=== PATIENT | female | born 1960 | race Caucasian/White ===

== ENCOUNTER → 2017-12-25 09:10 | Outpatient (CLI) | payer BC, SELFPAY | PROVIDERS: Family Provider Internal Medicine; PCP Internal Medicine; Visit Provider Internal Medicine | DX: R19.03 Right lower quadrant abdominal swelling, mass and lump (principal) ==

== ENCOUNTER → 2018-01-08 08:20 | Outpatient (CLI) | payer BC, SELFPAY ==
[2018-01-06 13:11] VITALS: BP 141/94; BMI 36.1
--- NOTE | 2018-01-08 08:22 | CT_ITS ---
STUDY: CT ABDOMEN AND PELVIS WITH CONTRAST REASON FOR EXAM: Female, 57 years old. Right sided mid abdominal pain for 3 months. RADIATION DOSAGE (If Supplied By Facility): CTDIvol = ( 19.44 ) mGy, DLP = ( 1156.51 ) mGycm TECHNIQUE: Transaxial images were obtained from the dome of the diaphragm to the symphysis pubis with oral contrast. 100 ml of Isovue 300 contrast was administered. Sagittal and coronal images were reconstructed. Individualized dose optimization techniques were used for this CT. COMPARISON: None. FINDINGS: There is elevation of the left hemidiaphragm. Mild increased markings are seen at the left lung base suggestive of atelectasis. The visualized portions of the heart are within normal limits. Multiple scattered 1 cm cysts are seen in the liver. The patient is status post cholecystectomy. Normal spleen. Normal pancreas. Normal bilateral adrenal glands. Normal right kidney. Normal left kidney. Moderate sized hiatal hernia. Normal small intestine. Normal colon. There is non-visualization of the appendix. Normal abdominal aorta. Normal inferior vena cava. There is borderline retroperitoneal lymphadenopathy with enlarged nodes no greater than 10mm in the short axis diameter. Normal urinary bladder. There is absence of the uterus consistent with a prior hysterectomy. There is evidence of a moderate-sized umbilical hernia containing nonobstructive small bowel loops. The neck of the hernia measures 6.2 cm. Normal osseous structures. CT/Abdomen/Pelvis WITH Contrast IMPRESSION: Moderate sized umbilical hernia containing nondilated small bowel loops. Small hiatal hernia. Multiple small hepatic cysts. Electronically Signed: Ashutosh Dobbins MD at 12:45 EST Tel [phone], Service support ,
== END ==
PROVIDERS: Family Provider Internal Medicine; PCP Internal Medicine; Visit Provider Surgery
DX: R93.5 Abnormal findings on diagnostic imaging of other abdominal regions, including retroperitoneum (principal)
CPT/HCPCS: 74177; Q9967

== ENCOUNTER 2018-01-27 05:15 | Day surgery (SDC) | payer BC, SELFPAY ==
[2018-01-27] VITALS (7 sets, daily range): BP systolic 125–146; BP diastolic 85–99; PULSE 65–85; RESP 16–18; TEMP 36.3–36.6; O2SAT 91–95; BMI 35.9
--- NOTE | 2018-01-27 05:23 | EKG12_ITS ---
Test Reason : PRE-OP Blood Pressure : / mmHG Vent. Rate : 071 BPM Atrial Rate : 071 BPM P-R Int : 150 ms QRS Dur : 080 ms QT Int : 430 ms P-R-T Axes : 022 015 021 degrees QTc Int : 467 ms Normal sinus rhythm Nonspecific T wave abnormality Prolonged QT Abnormal ECG When compared with ECG of 15-JAN-2017 14:05, Nonspecific T wave abnormality now evident in Anterior leads Confirmed by DAMIÁN MATHEWS, MATTY ([id number]), heat treat furnace operator LAURA LÓPEZ ([id number]) on 02/03/2018 1:36:18 PM Referred By: Sandip Cruz Confirmed By:MATTY STEEL MD
[2018-01-27 06:40] LABS: Hematocrit 39.1 % (37-47); Hemoglobin 13.3 g/dl (12.0-15.0); Mean Corpuscular Hgb 29.6 pg (27.0-32.0); Mean Corpuscular Volume 86.9 fL (81-99); Platelet Count 199 K/mm3 (150-450); RBC Distribution Width CV 13.2 % (11.6-14.6); RBC Distribution Width SD 41.2 fl (35.1-43.9); White Blood Count 5.7 K/mm3 (4.4-11.0)
[2018-01-27 06:46] LABS: Scan Indicated on CBC? Y/N NO
[2018-01-27] MEDS: Cefazolin 2 GM in 0.9% Normal Saline 100 ML IV (07:07)
--- NOTE | 2018-01-27 07:14 | PCM.OPRPT ---
Problem List (1) Incisional hernia, without obstruction or gangrene Status: Acute Report of Operation Date of Procedure: 01/27/18 Pre-Operative Diagnosis: k43.2 incisional hernia without obstruction or gangrene Post-Operative Diagnosis: Same Surgery/Procedure Performed:: Incisional hernia repair with mesh Description of Surgical Findings:: Ventrio ST hernia patch reference #[id number] lot number [id number] 11 cm x 14 cm oval Type of Anesthesia:: General Anesthesiologist: Kevyn Mae Estimated Blood Loss (mL): < 25 cc Fluids Replaced: 1 L Description of Procedure: Patient was brought in the operating room and placed in the supine position. Under excellent general endotracheal intubation the abdomen was sterilely prepped and draped. A curvilinear incision was made below the umbilicus. Dissection was carried down and a large incisional hernia at the umbilicus was then dissected free from the umbilical skin and down to the fascia. I circumferentially detach the hernia from the surrounding good fascia and placed it back into its preperitoneal space. I then created a preperitoneal window with use of electrocautery for which I fashioned an 11 cm x 14 cm hernia patch into this area. I tacked it to the underlying surface with a single tacking interrupted #1 Nurolon's which were placed down by the ring and then individual interrupted #1 Nurolon's from the good fascia down to the hernia patch itself. I had excellent hemostasis. Once this was completed I then injected Exparel all around the incision. The wound was then brought together with deep dermal stitches of 3-0 Vicryl then a running 4-0 Monocryl. Steri-Strips are applied sterile dressings were applied and the patient tolerated the procedure well. - Admit VTE Documentation VTE Present on Admission: No VTE Mechan Device Prophylaxis: SCD's VTE Pharm Prophylaxis ordered?: No Reason prophylaxis not ordered:: Treatment Not Indicated
--- NOTE | 2018-01-27 07:16 | DCINST_ITS ---
Discharge Diet: Light diet - advance as tolerated Discharge Activity: Return to Normal Activity, May Drive - when you are no longer taking narcotic pain medications., May Shower - with the bandage in place 1-2 days after surgery. Lifting Restrictions: 20 pounds for 8 weeks. Additional Activity Instructions:: Climbing stairs is fine, walking is encouraged. Sitting in bed may be uncomfortable. Sitting up using your lateral muscles (sitting up sideways) is usually more comfortable. Do not drive, work heavy equipment of sign legal documents for 24 hours. If your hernia repair was an ingunial repair, you may have scrotal swelling, an ice pack and/or athletic support can provide more comfort. Pain medications may cause nausea, you should typically eat light foods as you take your pain medications. Pain medications may also cause constipation. If you have difficulty with this, discuss with your doctor. Call your doctor if your incision/area has: Continuous Slow Oozing, Sudden Increased Bleeding, Increased Pain/ Swelling, Increased Redness, Foul Smelling Discharge Call your doctor if you observe: Fever of 101 or Higher Suture Line Care: Avoid Pulling/Pushing, Avoid Pinching/Bending Additional Dressing/Incision Instructions:: Leave the operative bandage on for 2 -3 days. When you remove the bandage, leave the steri-strips on place until your follow up appointment or they fall off. Allergies/Adverse Reactions: Allergies No Known Allergies Allergy (Verified 01/20/18 09:34) Medications to take at Discharge Budesonide Nasal [Rhinocort Aqua] 2 spray NASAL PRN PRN 10/10/13 Atorvastatin Calcium [Lipitor] 80 mg PO QODAY 01/10/14 Clopidogrel Bisulfate [Plavix] 75 mg PO DAILY 01/10/14 Ferrous Sulfate [Iron Supplement] 325 mg PO DAILY PRN 01/10/14 Lisinopril [Zestril] 5 mg PO BID 07/04/15 Citalopram [Celexa] 10 mg PO DAILY 01/15/17 Pantoprazole Sodium [Protonix] 40 mg PO DAILY 01/15/17 Cetirizine HCl [Allergy] 10 mg PO DAILY 01/20/18 Oxycodone HCl/Acetaminophen [Percocet 5/325] 1 - 2 tab PO Q4H PRN PRN 4 Days # 30 tab 01/27/18 The following prescriptions were given: Oxycodone HCl/Acetaminophen [Percocet 5/325] 1 - 2 tab PO Q4H PRN PRN 4 Days # 30 tab PRN Reason: Pain Primary Care Physician: Brigette Saavedra DO [Primary Care Provider] - Please Follow Up With: Sandip Cruz MD - [phone] When: Plan to have a follow up appointment in 7 days. Call to schedule.
[2018-01-27] MEDS: BUPIVACAINE LIPOSOME/PF 20 ML VIAL OPERA.SITE (07:45)
== END 2018-01-27 10:30 | disposition home or self-care (01) ==
LOC: SDC 05:18 → AC 05:18
PROVIDERS: Anesthesiology; Family Provider Internal Medicine; PCP Internal Medicine; Visit Provider Surgery
PROC: (CPT 49560; principal; 2018-01-27 07:00)
DX: K43.2 Incisional hernia without obstruction or gangrene (principal); I10 Essential (primary) hypertension; E78.5 Hyperlipidemia, unspecified; J32.9 Chronic sinusitis, unspecified; M19.90 Unspecified osteoarthritis, unspecified site; G47.30 Sleep apnea, unspecified; K21.9 Gastro-esophageal reflux disease without esophagitis; F41.9 Anxiety disorder, unspecified; Z79.02 Long term (current) use of antithrombotics/antiplatelets; Z79.01 Long term (current) use of anticoagulants; Z79.899 Other long term (current) drug therapy; Z86.73 Personal history of transient ischemic attack (TIA), and cerebral infarction without residual deficits; Z86.010 Personal history of colon polyps; Z98.51 Tubal ligation status
CPT/HCPCS: 00832; 49560; 49568; 85027; 93005; J7120; C1781; J2405; J3490

== ENCOUNTER → 2018-05-07 08:19 | Outpatient (CLI) | payer BC, SELFPAY ==
--- NOTE | 2018-05-07 08:19 | DT_ITS ---
This patient was seen during an EMR downtime May 03, 2018 - May 10, 2018. This patient may have a combination of paper and electronic documentation or all paper documentation. All documentation is viewable within the e-chart portion of [facility] for each patient visit.
--- NOTE | 2018-05-07 08:26 | BI_ITS ---
MAMMOGRAPHY - BILATERAL SCREENING REASON FOR EXAM: Female, 58 years old. Routine annual screening examination. PERTINENT HISTORY: Non-contributory. TECHNIQUE: Digital bilateral breast huy (3D mammographic acquisition) in the CC and MLO projections. 2-D mediolateral oblique (MLO) and craniocaudad (CC) views of both breasts were obtained. CAD: Full Field Digital Mammography with Computer Added Detection was performed. COMPARISON: Comparison is made with prior study dated April 10, 2017 and February 14, 2016. FINDINGS: Breast Composition: There are scattered areas of fibroglandular density. There are no dominant masses or suspicious calcifications. No other significant abnormalities are identified. There has been no significant change since the prior study. BI/SCREENING MAMM (CAD), BILAT IMPRESSION: Stable bilateral screening mammogram. Yearly follow-up mammogram recommended. (A) ASSESSMENT CATEGORY: BIRADS Category 1: Negative. A letter regarding these results will be sent to the patient by the facility within 30 days. Approximately 10% of breast cancers are not detected by mammography. A normal mammogram should not delay biopsy of a clinically suspicious abnormality. [id number] Electronically Signed: Ashutosh Dobbins MD at 9:51 EDT Tel [phone], Service support ,
== END ==
PROVIDERS: Family Provider Internal Medicine; PCP Internal Medicine; Visit Provider Internal Medicine
DX: Z12.31 Encounter for screening mammogram for malignant neoplasm of breast (principal)
CPT/HCPCS: 77063; 77067

== ENCOUNTER → 2018-07-15 11:39 | Outpatient (CLI) | payer BC, SELFPAY ==
[2018-07-21 11:41] LABS: HPV Reflexed? NOT INDICATED
== END ==
PROVIDERS: Visit Provider Obstetrics & Gynecology
DX: Z12.4 Encounter for screening for malignant neoplasm of cervix (principal)
CPT/HCPCS: 88175; G0145

== ENCOUNTER → 2019-01-21 08:56 | Outpatient (CLI) | payer BC, SELFPAY ==
[2018-12-20 11:02] VITALS: BMI 36.1
--- NOTE | 2019-01-21 09:01 | US_ITS ---
STUDY: THYROID ULTRASOUND REASON FOR EXAM: Female, 58 years old. Thyroid nodule follow-up TECHNIQUE: Ultrasound evaluation of the thyroid was performed with real-time and static smtih-scale imaging. COMPARISON: Multiple prior studies most recently from 04/10/2017 FINDINGS: RIGHT LOBE: The right lobe of the thyroid gland measures 4.1 x 1.2 x 2.3 cm. There is a homogeneous echotexture. Solitary oval-shaped hypoechoic nodule in the right thyroid lobe measures 2.1 x 1.4 x 1.5 cm with small areas of cystic transformation. No microcalcifications are seen. LEFT LOBE: The left lobe of the thyroid gland measures 4.0 x 0.9 x 1.7 cm. There is a homogeneous echotexture. There are multiple anechoic to slightly hypoechoic nodules of the left thyroid lobe measuring up to 7 mm. ISTHMUS: The isthmus measures 3.0 mm. The regional lymph nodes are normal. US/Thyroid IMPRESSION: 1. Stable dominant nodule in the right thyroid lobe since April 10, 2017. 2. Left thyroid lobe lesions are more anechoic than the prior study, compatible with colloidal nodules. Electronically Signed: Derrick Portillo MD at 14:56 EST , Service support ,
== END ==
PROVIDERS: Family Provider Internal Medicine; PCP Internal Medicine; Referring Provider Internal Medicine; Visit Provider Internal Medicine
DX: E04.1 Nontoxic single thyroid nodule (principal)
CPT/HCPCS: 76536

== ENCOUNTER → 2019-05-10 09:18 | Outpatient (CLI) | payer BC, SELFPAY ==
[2018-12-20 11:02] VITALS: BMI 36.1
--- NOTE | 2019-05-10 09:20 | BI_ITS ---
MAMMOGRAPHY - BILATERAL SCREENING REASON FOR EXAM: Female, 59 years old. Routine annual screening examination. PERTINENT HISTORY: Non-contributory. TECHNIQUE: Digital bilateral breast chapin (3D mammographic acquisition) in the CC and MLO projections. 2-D mediolateral oblique (MLO) and craniocaudad (CC) views of both breasts were obtained. CAD: Full Field Digital Mammography with Computer Added Detection was performed. COMPARISON: Comparison is made with prior examination dated May 07, 2018 and April 10, 2017. FINDINGS: Breast Composition: There are scattered areas of fibroglandular density. There are no dominant masses or suspicious calcifications. No other significant abnormalities are identified. There has been no significant change since the prior study. BI/SCREEN MAMM (CAD) W/CHAPIN BILAT IMPRESSION: Stable bilateral screening mammogram. Yearly follow-up mammogram recommended. (A) ASSESSMENT CATEGORY: BIRADS Category 1: Negative. A letter regarding these results will be sent to the patient by the facility within 30 days. Approximately 10% of breast cancers are not detected by mammography. A normal mammogram should not delay biopsy of a clinically suspicious abnormality. [id number] Electronically Signed: Ashutosh Dobbins, at 11:28 EDT , Service support ,
--- NOTE | 2019-05-10 09:32 | BD_ITS ---
STUDY: DUAL ENERGY X-RAY ABSORPTIOMETRY / DXA REASON FOR EXAM: Female, 59 years old. The patient is postmenopausal. TECHNIQUE: Bone Mineral Density (BMD) measurements of lumbar spine and bilateral hips were obtained. COMPARISON: Comparison is made with prior study February 14, 2016. FINDINGS: Lumbar Spine (L1-L4): g/cm2 (1.032) / T-score (-1.2) / Z-score (0.0) Findings are suggestive of osteopenia with a low fracture risk. Left Femur Total: g/cm2 (0.945) / T-score (-0.5) / Z-score (0.4) Left Femoral Neck: g/cm2 (0.883) / T-score (-1.1) / Z-score (0.1) Right Femur Total: g/cm2 (0.906) / T-score (-0.8) / Z-score (0.1) Right Femoral Neck: g/cm2 (0.849) / T-score (-1.4) / Z-score (-0.1) The T-Scores on the most recent prior examination were: Lumbar Spine (L1-L4): There has been worsening of bone density since the previous examination. Left Femur Total: which represents a worsening of 5.5%. Right Femur Total: which represents a worsening of 7.1%. BD/Dexa Bone Density Study IMPRESSION: The patient is considered osteopenic as outlined below according to World Zhang Organization (WHO) criteria with a low fracture risk. There has been worsening of bone density since the previous examination. Reference Information: The T-score is the number of standard deviations above or below the standard which is normal for young adults at their peak bone mineral density. The World Health Organization (WHO) interprets the T-scores as follows: Above -1 Normal bone density Between -1 and -2.5 Osteopenia Equal to / or below -2.5 Osteoporosis As a practical clinical guideline, osteopenia may be graded as follows: Mild -1 through -1.5 Moderate -1.6 through -2.0 Severe -2.1 through -2.4 The Z-score is the number of standard deviations above or below age-matched controls. A Z-score of less than -1.5 would be considered abnormal. References: 1. NIH Osteoporosis and Related Bone Diseases http://www.osteo.org 2. International Society for Clinical Densitometry http://www.iscd.org 3. National Osteoporosis Foundation http://www.nof.org Electronically Signed: Ashutosh Dobbins, at 15:37 EDT , Service support ,
== END ==
PROVIDERS: Family Provider Internal Medicine; PCP Internal Medicine; Referring Provider Internal Medicine; Visit Provider Internal Medicine
DX: Z12.31 Encounter for screening mammogram for malignant neoplasm of breast (principal); Z78.0 Asymptomatic menopausal state
CPT/HCPCS: 77063; 77067; 77080

== ENCOUNTER → 2019-07-20 10:30 | Outpatient (CLI) | payer BC, SELFPAY ==
[2018-12-20 11:02] VITALS: BMI 36.1
[2019-07-22 14:26] LABS: HPV APTIMA, High Risk Negative (Negative)
== END ==
PROVIDERS: Visit Provider Obstetrics & Gynecology
DX: Z12.4 Encounter for screening for malignant neoplasm of cervix (principal); Z12.72 Encounter for screening for malignant neoplasm of vagina
CPT/HCPCS: 87624; 88175; G0145

== ENCOUNTER → 2020-01-11 09:44 | Outpatient (CLI) | payer BC, SELFPAY ==
[2018-12-20 11:02] VITALS: BMI 36.1
--- NOTE | 2020-01-11 09:47 | CDU_ITS ---
Reason For Study: CVA Rt. Velocities/BP Lt. Velocities/BP Prox CCA 77/23 cm/sec. Prox CCA 103/27 cm/sec. Mid CCA 84/20 cm/sec. Mid CCA 84/30 cm/sec. Dist CCA 74/23 cm/sec. Dist CCA 73/31 cm/sec. Prox ICA 82/23 cm/sec. Prox ICA 71/23 cm/sec. Mid ICA 75/30 cm/sec. Mid ICA 79/33 cm/sec. Dist ICA 71/28 cm/sec. Dist ICA 111/51 cm/sec. Rt. ICA/CCA = 1.0. Lt. ICA/CCA = 1.3. Prox ECA 79/16 cm/sec. Prox ECA 83/15 cm/sec. Rt. Vert. 30/8 cm/sec. Lt. Vert. 37/14 cm/sec. Right Extracranial There is intimal thickening but no significant atherosclerotic plaque noted in the right common carotid artery. There is intimal thickening but no significant atherosclerotic plaque noted in the right internal carotid artery. There is no significant atherosclerotic plaque noted in the right external carotid artery. Antegrade flow is noted in the right vertebral artery. Left Extracranial There is intimal thickening but no significant atherosclerotic plaque noted in the left common carotid artery. There is intimal thickening but no significant atherosclerotic plaque noted in the left internal carotid artery. There is intimal thickening but no significant atherosclerotic plaque noted in the left external carotid artery. Antegrade flow is noted in the left vertebral artery. Procedure Carotid Duplex [id number]. Exam performed in department. Interpretation Summary No hemodynamically significant plaque right extracranial internal carotid <50% stenosis right internal carotid <50% stenosis right external carotid No hemodynamically significant plaque left extracranial internal carotid <50% stenosis left internal carotid <50% stenosis left external carotid Patent, antegrade vertebrals bilaterally Ordering Physician: Polo Allison Referring Physician: Keri, Brigette Performed By: Bhavana Velázquez RDCS, RVT
== END ==
LOC: CVS 09:46
PROVIDERS: PCP Internal Medicine; Referring Provider Psychiatry & Neurology Neurology; Visit Provider Psychiatry & Neurology Neurology
DX: Z86.73 Personal history of transient ischemic attack (TIA), and cerebral infarction without residual deficits (principal)
CPT/HCPCS: 93880

== ENCOUNTER → 2020-01-12 19:50 | Outpatient (CLI) | payer BC, SELFPAY ==
[2018-12-20 11:02] VITALS: BMI 36.1
== END ==
LOC: SL 20:01
PROVIDERS: PCP Internal Medicine; Referring Provider Psychiatry & Neurology Neurology; Visit Provider Psychiatry & Neurology Neurology
DX: G47.33 Obstructive sleep apnea (adult) (pediatric) (principal); Z86.73 Personal history of transient ischemic attack (TIA), and cerebral infarction without residual deficits
CPT/HCPCS: 95811

== ENCOUNTER → 2020-02-27 07:43 | Outpatient (CLI) | payer BC, SELFPAY ==
[2018-12-20 11:02] VITALS: BMI 36.1
== END ==
PROVIDERS: PCP Internal Medicine; Visit Provider Nurse Practitioner Family
DX: Z46.89 Encounter for fitting and adjustment of other specified devices (principal)

== ENCOUNTER → 2020-08-03 08:35 | Outpatient (CLI) | payer BC, SELFPAY ==
[2018-12-20 11:02] VITALS: BMI 36.1
--- NOTE | 2020-08-03 08:40 | BI_ITS ---
MAMMOGRAPHY - BILATERAL SCREENING REASON FOR EXAM: Female, 60 years old. Routine annual screening examination. PERTINENT HISTORY: Non-contributory. TECHNIQUE: Digital bilateral breast chapin (3D mammographic acquisition) in the CC and MLO projections. 2-D mediolateral oblique (MLO) and craniocaudad (CC) views of both breasts were obtained. CAD: Full Field Digital Mammography with Computer Added Detection was performed. COMPARISON: Comparison is made with prior examination dated 05/10/2019 and 05/07/2018. FINDINGS: Breast Composition: There are scattered areas of fibroglandular density. There are no dominant masses or suspicious calcifications. No other significant abnormalities are identified. There has been no significant change since the prior study. BI/SCREEN MAMM (CAD) W/CHAPIN BILAT IMPRESSION: Stable bilateral screening mammogram. Yearly follow-up mammogram recommended. (A) ASSESSMENT CATEGORY: BIRADS Category 1: Negative. A letter regarding these results will be sent to the patient by the facility within 30 days. Approximately 10% of breast cancers are not detected by mammography. A normal mammogram should not delay biopsy of a clinically suspicious abnormality. [id number] Electronically Signed: Ashutosh Dobbins, at 10:09 EDT , Service support ,
== END ==
PROVIDERS: PCP Internal Medicine; Referring Provider Obstetrics & Gynecology; Visit Provider Obstetrics & Gynecology
DX: Z12.31 Encounter for screening mammogram for malignant neoplasm of breast (principal)
CPT/HCPCS: 77063; 77067

== ENCOUNTER 2021-12-20 07:56 | Outpatient (CLI) | payer BC, SELFPAY ==
--- NOTE | 2021-12-20 08:04 | BI_ITS ---
MAMMOGRAPHY - BILATERAL SCREENING REASON FOR EXAM: Female, 61 years old. Routine annual screening examination. PERTINENT HISTORY: Non-contributory. TECHNIQUE: Digital bilateral breast chapin (3D mammographic acquisition) in the CC and MLO projections. 2-D mediolateral oblique (MLO) and craniocaudad (CC) views of both breasts were obtained. CAD: Full Field Digital Mammography with Computer Added Detection was performed. COMPARISON: Comparison is made with prior study of 08/03/2020 and 05/10/2019. FINDINGS: Breast Composition: There are scattered areas of fibroglandular density. There are no dominant masses or suspicious calcifications. No other significant abnormalities are identified. There has been no significant change since the prior study. BI/SCRN MAMM (CAD)W/CHAPIN BILAT IMPRESSION: Stable bilateral screening mammogram. Yearly follow-up mammogram recommended. (A) ASSESSMENT CATEGORY: BIRADS Category 1: Negative. A letter regarding these results will be sent to the patient by the facility within 30 days. Approximately 10% of breast cancers are not detected by mammography. A normal mammogram should not delay biopsy of a clinically suspicious abnormality. [id number] Electronically Signed: Ashutosh Dobbins MD at 9:37 EST , Service support ,
== END 2021-12-20 23:59 | disposition short-term general hospital (02) ==
LOC: OPBI 07:56
PROVIDERS: PCP Internal Medicine; Referring Provider Obstetrics & Gynecology; Visit Provider Obstetrics & Gynecology
DX: Z12.31 Encounter for screening mammogram for malignant neoplasm of breast (principal)
CPT/HCPCS: 77063; 77067

== ENCOUNTER 2022-01-28 16:33 | Outpatient (CLI) | payer BC, SELFPAY ==
--- NOTE | 2022-01-28 16:37 | CT_ITS ---
STUDY: CT Lower Extremity W/O Contrast Injection 01/28/2022 5:10 PM REASON FOR EXAM: Female, 61 years old. RT KNEE BOB PROTOCOL Individualized dose optimization techniques were used for this CT. TECHNIQUE: RT KNEE BOB PROTOCOL BOB protocol COMPARISON: No priors for comparison. FINDINGS: A lulú was placed along the lateral aspect of the patient''s lower extremity. CT scans were obtained over the hip, knee, and ankle, separately. IMPRESSION: The images will be utilized by the surgical prosthesis oral and maxillofacial pathologist for measurement and planning purposes.. Electronically Signed: Rene Gilmore MD at 17:11 EST , CT/Extremity Lower without Contra
== END 2022-01-28 23:59 | disposition home or self-care (01) ==
PROVIDERS: PCP Internal Medicine; Referring Provider Orthopaedic Surgery; Visit Provider Orthopaedic Surgery
DX: M17.11 Unilateral primary osteoarthritis, right knee (principal)
CPT/HCPCS: 73700; 93005

== ENCOUNTER 2022-02-10 05:23 | Day surgery (SDC) | payer BC, SELFPAY ==
--- NOTE | 2022-01-28 16:26 | EKG12_ITS ---
Test Reason : PRE-OP Blood Pressure : / mmHG Vent. Rate : 075 BPM Atrial Rate : 075 BPM P-R Int : 136 ms QRS Dur : 068 ms QT Int : 392 ms P-R-T Axes : 044 000 046 degrees QTc Int : 437 ms Normal sinus rhythm Normal ECG Confirmed by DAMIÁN MATHEWS, MATTY ([id number]), publication editor FANTA VALDEZ ([id number]) on 01/30/2022 1:11:11 PM Referred By: Tulio Tinajero Confirmed By:MATTY STEEL MD
[2022-01-28 17:17] LABS: Hematocrit 39.5 % (37-47); Hemoglobin 13.3 g/dL (12.0-15.0); Mean Corp Hgb Conc 33.7 g/dL (32-36); Mean Corpuscular Hgb 29.5 pg (27.0-32.0); Mean Corpuscular Volume 87.6 fL (81-99); Mean Platelet Vol. 9.6 fl (6.2-12.0); Platelet Count 219 K/mm3 (150-450); RBC Distribution Width CV 13.1 % (11.6-14.6); RBC Distribution Width SD 42.3 fl (35.1-43.9); Red Blood Count 4.51 M/mm3 (4.2-5.4)
[2022-01-28 17:37] LABS: Anion Gap 5 (5-15); BUN 11 mg/dL (7-18); Calcium,Total 8.5 mg/dL (8.5-10.1); Chloride 108 mmol/L (98-107); Creatinine, Serum 0.69 mg/dL (0.55-1.02); EST Glomerular Filtration Rate 92 mL/min (>60); Est Glom Filt Rate - Afr Amer 111 mL/min (>60); Glucose 92 mg/dL (74-106); Potassium 3.8 mmol/L (3.5-5.1); Sodium Level 139 mmol/L (136-145)
[2022-01-30 10:04] LABS: Magnesium 1.9 mg/dL (1.6-2.6)
[2022-02-10] VITALS (14 sets, daily range): BP systolic 70–132; BP diastolic 43–86; PULSE 60–72; RESP 16–18; TEMP 36.2–37; O2SAT 92–100; BMI 34.3
[2022-02-10] MEDS: Lactated Ringers 1,000 ML 15 ML IV (05:40)
[2022-02-10] MEDS: Gabapentin 600 MG Tablet PO (06:16)
[2022-02-10] MEDS: Acetaminophen 500 MG Tablet 1000 MG PO ×2 (06:17→14:30)
[2022-02-10 06:41] LABS: Bedside Glucose 112 mg/dL (74-106)
--- NOTE | 2022-02-10 07:37 | RAD_ITS ---
STUDY: X-RAY - RIGHT KNEE REASON FOR EXAM: Female, 61 years old. Postoperative evaluation after total knee arthroplasty. TECHNIQUE: 2 view(s) of the knee. COMPARISON: None. FINDINGS: There is a 3 component total knee arthroplasty in anatomic position. There are expected post-operative findings. There are no complications. No other significant abnormality is identified. RAD/Knee 1 or 2 Views IMPRESSION: Total knee arthroplasty in anatomic alignment without complications. Electronically Signed: Dexter Culver MD at 9:13 EDT ,
--- NOTE | 2022-02-10 08:00 | KNEE_PTH ---
PATIENT: JAZZY CUMMINGS [place] [facility] [place][id number] AGE/SX: 61/F ROOM: RE02/10/[address]: Dr. Tulio Tinajero DO : 1960 BED: DIS: 02/10/2022 SPEC #: [id number] RECD: 02/10/22 10:59 STATUS: DOROTHY RETyler #: [id number] KYLE: 02/10/22 08:[address]: Tulio Tinajero DEPT: SURGICAL PATHOLOGY RECD BY: Blanche Chapman ENTERED: 02/10/22 13:27 SP TYPE: TOTAL KNEE OTHR DR: Dr. Brigette Saavedra DO Tissues: Knee, NOS Procedures: Decalcification bone/plaque Surgery Specimen Level IV HEADER OPERATION: ERAS, total knee replacement robotic arm assisted PRE-OP DIAGNOSIS: Unilateral primary osteoarthritis right knee varus deformity right knee TISSUE SUBMITTED: Bone and soft tissue right knee MICROSCOPIC DIAGNOSIS Bone and tissue of right knee, total knee resection: Degenerative joint disease. AM:[place] 02/13/2022 MICROSCOPIC DESCRIPTION Slides are reviewed. GROSS DESCRIPTION Received is one container designated bone and soft tissue right knee. The specimen consists of multiple fragments of doty-yellow bone measuring in aggregate 14 x 12 x 1.5 cm. Also in the specimen container are multiple fragments of yellow-white soft tissue measuring in aggregate 8.5 x 8 x 1 cm. A number of bony fragments contain articular surfaces consistent with tibial plateau and femoral condyle and displaying prominent osteophyte formation, eburnation, and bone erosion. Loop Drier Operator sections are submitted in two cassettes as follows: 1 - soft tissue, 2 - bone after decalcification. / AM:[place] 02/10/2022 TC:5 CPT: 83428, 84098
[2022-02-10] MEDS: Cefazolin 2 GM in 0.9% Normal Saline 100 ML IV (08:10)
[2022-02-10] MEDS: Lactated Ringers 1,000 ML 125 ML IV (08:31)
--- NOTE | 2022-02-10 09:21 | OP.PCM_ITS ---
Report of Operation Date of Procedure: 02/10/22 Pre-Operative Diagnosis: OA Right knee Post-Operative Diagnosis: same Surgery/Procedure Performed:: Right TKR Surgeon: Tulio Tinajero boat officer: Dexter Miller Type of Anesthesia: Spinal Anesthesiologist: Kevyn Mae Specimen's removed: bone Estimated Blood Loss (mL): 30 cc Fluids Replaced: 1500 cc crystalloid Description of Procedure: Report of Operation Date of Procedure: 02/10/22 Preoperative Diagnosis: [right ] knee primary osteoarthritis Postoperative Diagnosis: [right ] knee primary osteoarthritis Operation: Robotic Assisted Knee Total Arthroplasty, [right ] knee Surgeon: Dr Tulio Tinajero, Print Shop Assistant: Dexter Miller PA-C Anesthesia: spinal Anesthesiologist: Kevyn Mae M.D. Findings: Stable knee with good patella tracking Specimen(s): Bony cuts Complications: No intraoperative complications Estimated Blood Loss: 30 cc IV Fluids: 1500 cc crystalloid Implants Used: 1. [employer] Triathlon press-fit CR size 5 femur 2. [employer] Triathlon size 5 tibia 3. 9 mm CS polyethylene 4. 32 mm patella Brief History Operative Indications: [ (61 y\o female) ] with history of [ right ] knee osteoarthrosis with radiographic findings with loss of joint space, osteophyte formation and subchondral sclerosis. Failed conservative measures as mentioned in the H&P. Discussion of total knee arthroplasty as well as risk and benefits were discussed with the patient including but not limited to blood loss, DVTs, PEs, neurovascular damage, general risk of anesthesia including loss of life, and stiffness or instability were also discussed with the patient. Patient demonstrated understanding and was able to sign informed consent. Procedure: On the date of procedure, patient's [right ] lower extremity was marked in the preoperative area. The patient was then taken back to the operating room where that patient was placed on the table in the supine position. All bony prominences were identified and well-padded. Anesthesia assumed control of the C-spine and airway throughout the remainder of the procedure. A tourniquet was placed on the [right ] upper thigh and the leg was prepped in a sterile fashion. The surgeon then scrubbed at this time. Upon reentering the room, the [right ] lower extremity was draped in a standard orthopedic fashion. A timeout was then called and everyone agreed upon the side, the site, the procedure to be performed, patient's identity and antibiotics given. Esmarch bandage was used to exsanguinate the extremity and the tourniquet was placed up to 250 mmHg with the knee in flexion. A midline skin incision was made and a sharp dissection was taken down through skin, subcutaneous tissue and fat. The standard medial parapatellar incision was made and the patella was subluxed laterally. An appropriate deep MCL release was done and the fat pad was resected. Our attention was then directed to the patella. The patella was everted and a flat resection was made. The knee was then flexed up and 2 femoral pins were placed inside the incision and 2 tibial pins were placed outside the incision in the medial tibia bicortically. Once this was completed, the 2 checkpoints in the femur and tibia were placed. Knee was then flexed up and the bony landmarks were registered. Once the was completed, the knee taken through range of motion and manually stressed allowing us to plan for an appropriate tibial cut. The robotic arm was brought into the field sterilely and checkpoint and saw were registered. Based on the patient's deformity, the tibial cut was made in [3 degrees varus ]. At this time, the tensioner was then placed in the joint and ligament tension was checked at 90 degrees and full extension. Based on the patient's ligamentous tension, appropriate adjustments were made to the operative plan and ligament releases were done. Once we were happy with our operative plan with balanced flexion and extension gaps, our attention was directed to the femur. The robot was brought into the field sterilely and registered. Posterior condylar cuts, anterior chamfer cuts and anterior cuts were appropriately made for a [size 5 ] femur. When these were completed, the saws were switched out in the distal femoral and posterior chamfer cuts were made. Protecting the soft tissue throughout this time. A [size 5 ] base plate was selected. The knee was flexed to 90 degrees and soft tissues and posterior osteophytes were removed from the joint. 40 cc of the periarticular injection was injected into the posterior medial corner of the joint. The appropriate trials were then placed on the femur and tibia. A trial polyethylene was trialed to ensure proper balancing and stability of the knee. The appropriate tibial internal rotation was then marked with a bovie. Our attention was then directed to the patella. The lug holes were drilled and the patella trial was placed. Patellar tracking was checked and deemed appropriate. Once we were happy, lug holes were drilled for the femur and trial components were removed. The tibia was subluxed and pinned into place and the keel was punched and drilled appropriately. Final components were verified and opened. The wound was copiously irrigated with normal saline. The components were impacted into place with the tibia, femur and finally the patella. The trial poly component was placed and the knee was placed in full extension. The tracking, alignment and balance were verified and a [9 mm CS ] polyethylene component was placed. Once the final components were placed an Irrisept lavage was performed and the wound was copiously irrigated with normal saline solution and the periarticular injection was given. the wound was closed in a layer-montiel fashion using #1 vicryl interrupted sutures for the arthrotomy, 2-0 interrupted vicryl suture for the subcuticular layer and ford for final skin closure. A sterile compressive dressing was then placed. The patient was then awakened from anesthesia, tra nsferred to the [facility] and transferred to the PACU for recovery. My physician television production assistant was a vital part of this case. He was important in appropriate retraction during the case, and protection of soft tissues during bony cuts. His intimate knowledge of the case and my steps aided in safe and expedient completion of the procedure as well as appropriate position of the leg during the case. He was also vital in assisting with closure under my direct supervision. Due to the complexity of this case, robotic arm was used to assist in the surgery to improve accuracy and clinical outcomes. Post-op Plan: DVT ppx; ASA 81 mg BID, thigh high compression stockings Follow up: in office in 2 weeks for wound check PT: to start POD #0 at hospital, outpatient PT should be arranged. Preoperative antibiotic: Ancef 2 grams IV Tulio Tinajero DO Admit VTE Documentation VTE Present on Admission: No VTE Pharm Prophylaxis ordered?: Yes
[2022-02-10] MEDS: Scopolamine 1mg/72hr Patch 1 PATCH TD (15:30)
== END 2022-02-10 23:59 | disposition home or self-care (01) ==
LOC: SDC 05:24 → AC 05:24
PROVIDERS: Anesthesiology; PCP Internal Medicine; Referring Provider Orthopaedic Surgery; Visit Provider Orthopaedic Surgery
PROC: 0SRC0JZ Replacement of Right Knee Joint with Synthetic Substitute, Open Approach (ICD-10-PCS; CPT 27447; principal; 2022-02-10 07:30)
DX: M17.11 Unilateral primary osteoarthritis, right knee (principal); M21.161 Varus deformity, not elsewhere classified, right knee; I10 Essential (primary) hypertension; E78.5 Hyperlipidemia, unspecified; K21.9 Gastro-esophageal reflux disease without esophagitis; E66.9 Obesity, unspecified; Z68.33 Body mass index [BMI] 33.0-33.9, adult; Z87.891 Personal history of nicotine dependence; Z79.02 Long term (current) use of antithrombotics/antiplatelets; Z79.899 Other long term (current) drug therapy; Z86.73 Personal history of transient ischemic attack (TIA), and cerebral infarction without residual deficits; Z20.822 Contact with and (suspected) exposure to COVID-19
CPT/HCPCS: 27447; 01402; 64447; 36415; 73560; 80048; 82962; 83735; 85027; 87081; 87811; 88305; 88311; 93005; 97162; C1776; J7120; J2405

== ENCOUNTER → 2023-01-23 | Outpatient (CLI) | payer BC, SELFPAY ==
--- NOTE | 2023-01-23 08:20 | BI_ITS ---
MAMMOGRAPHY - BILATERAL SCREENING REASON FOR EXAM: Female, 62 years old. Routine annual screening examination. PERTINENT HISTORY: Non-contributory. TECHNIQUE: Digital bilateral breast chapin (3D mammographic acquisition) in the CC and MLO projections. 2-D mediolateral oblique (MLO) and craniocaudad (CC) views of both breasts were obtained. CAD: Full Field Digital Mammography with Computer Added Detection was performed. COMPARISON: Comparison is made with prior examination dated 12/20/2021 and 08/03/2020. FINDINGS: Breast Composition: There are scattered areas of fibroglandular density. There are no dominant masses or suspicious calcifications. No other significant abnormalities are identified. There has been no significant change since the prior study. BI/SCRN MAMM (CAD)W/CHAPIN BILAT IMPRESSION: Stable bilateral screening mammogram. Yearly follow-up mammogram recommended. (A) ASSESSMENT CATEGORY: BIRADS Category 1: Negative. A letter regarding these results will be sent to the patient by the facility within 30 days. Approximately 10% of breast cancers are not detected by mammography. A normal mammogram should not delay biopsy of a clinically suspicious abnormality. [id number] Electronically Signed: Ashutosh Dobbins MD at 9:53 EST ,
== END | disposition home or self-care (01) ==
LOC: OPBI 08:19
PROVIDERS: PCP Internal Medicine; Referring Provider Internal Medicine; Visit Provider Internal Medicine
DX: Z12.31 Encounter for screening mammogram for malignant neoplasm of breast (principal)
CPT/HCPCS: 77063; 77067

== ENCOUNTER → 2023-03-25 | Outpatient (CLI) | payer BC, SELFPAY ==
--- NOTE | 2023-03-25 13:49 | CDU_ITS ---
Reason For Study: Stenosis Rt. Velocities/BP Lt. Velocities/BP Prox CCA 74/18.2 cm/sec. Prox CCA 59.3/17.3 cm/sec. Mid CCA 74.9/22 cm/sec. Mid CCA 74/19.2 cm/sec. Dist CCA 69.2/15.4 cm/sec. Dist CCA 67.4/23 cm/sec. Prox ICA 58.9/17.3 cm/sec. Prox ICA 62.6/20.1 cm/sec. Mid ICA 79.6/26.7 cm/sec. Mid ICA 60.7/26.7 cm/sec. Dist ICA 92.7/32.2 cm/sec. Dist ICA 88.3/35.5 cm/sec. Rt. ICA/CCA = 1.34. Lt. ICA/CCA = 1.31. Prox ECA 81.5/15.4 cm/sec. Prox ECA 71.1/14.5 cm/sec. Rt. Vert. 28.7/7.3 cm/sec. Lt. Vert. 42.1/16.8 cm/sec. Right Extracranial There is intimal thickening but no significant atherosclerotic plaque noted in the right common carotid artery. There is intimal thickening but no significant atherosclerotic plaque noted in the right internal carotid artery. There is intimal thickening but no significant atherosclerotic plaque noted in the right external carotid artery. Antegrade flow is noted in the right vertebral artery. Left Extracranial There is intimal thickening but no significant atherosclerotic plaque noted in the left common carotid artery. There is intimal thickening but no significant atherosclerotic plaque noted in the left internal carotid artery. There is intimal thickening but no significant atherosclerotic plaque noted in the left external carotid artery. Antegrade flow is noted in the left vertebral artery. Procedure Carotid Duplex 51900. This is a Carotid Duplex examination using B-mode, color flow and specral Doppler. Exam performed in department. VL/Carotid Duplex Ultrasound Interpretation Summary Intimal thickening of the proximal right internal carotid artery with less than 50% stenosis Less than 50% stenosis right external carotid artery Intimal thickening of the proximal left internal carotid artery with less than 50% stenosis Less than 50% stenosis left external carotid artery Patent and antegrade vertebral arteries bilaterally No change from the previous examination of January 11, 2020 Ordering Physician: Polo Allison Referring Physician: Brigette Saavedra M.D. Performed By: Kesha Lund RVT
== END | disposition home or self-care (01) ==
PROVIDERS: PCP Internal Medicine; Referring Provider Psychiatry & Neurology Neurology; Visit Provider Psychiatry & Neurology Neurology
DX: I65.29 Occlusion and stenosis of unspecified carotid artery (principal)
CPT/HCPCS: 93880

== ENCOUNTER → 2023-04-14 | Outpatient (CLI) | payer BC, SELFPAY ==
--- NOTE | 2023-04-14 16:45 | CT_ITS ---
EXAM: CT LEFT LOWER EXTREMITY WITHOUT INTRAVENOUS CONTRAST CLINICAL INDICATION: LEFT OSTEO AR TECHNIQUE: Helically acquired images were obtained of the left lower extremity without intravenous contrast. 2-D reformats were performed by the technologist. CTDIvol = ( 19.29 ) mGy, DLP = ( 1952.84 ) mGycm This CT exam was performed using one or more of the following dose reduction techniques: automated exposure control, adjustment of the mA and/or kV according to patient size, and/or use of iterative reconstruction technique. COMPARISON: January 28, 2022 FINDINGS: BONES/JOINTS: No unusual lytic sclerotic lesions of bone. This includes absence of acute or healing fracture or malalignment. Moderate osteoarthrosis involving all 3 compartments of knee, worse at the medial femorotibial compartment. Large plantar calcaneal enthesophyte. Ankle mortise is intact. No significant joint effusion. No significant tibiotalar joint effusion. SOFT TISSUES: Unremarkable. No soft tissue swelling or gas. No radiopaque foreign body. No soft tissue masses. No other soft tissue abnormalities. CT/Extremity Lower without Contra IMPRESSION: Preoperative planning study showing moderate tricompartmental osteoarthrosis of the left knee, worse at the medial femorotibial compartment. Electronically Signed: Murali Elam MD at 21:47 EDT ,
== END | disposition home or self-care (01) ==
LOC: CT 16:43
PROVIDERS: PCP Internal Medicine; Referring Provider Orthopaedic Surgery; Visit Provider Orthopaedic Surgery
DX: M17.12 Unilateral primary osteoarthritis, left knee (principal)
CPT/HCPCS: 73700

== ENCOUNTER 2023-04-20 05:13 | Day surgery (SDC) | payer BC, SELFPAY ==
--- NOTE | 2023-04-13 07:33 | EKG12_ITS ---
Test Reason : PRE-OP Blood Pressure : / mmHG Vent. Rate : 081 BPM Atrial Rate : 081 BPM P-R Int : 124 ms QRS Dur : 066 ms QT Int : 382 ms P-R-T Axes : 023 -05 033 degrees QTc Int : 443 ms Normal sinus rhythm Normal ECG Confirmed by DAMIÁN MATHEWS, MATTY ([id number]), tape editor FANTA VALDEZ ([id number]) on 04/13/2023 1:50:00 PM Referred By: Tulio Tinajero Confirmed By:MATTY STEEL MD
[2023-04-13 08:08] LABS: Absolute Lymphocyte Count 1.49 X10^3/uL (0.83-4.51); Absolute Neutrophil Count 4.3 X10^3/uL (2.0-7.7); Basophil# 0.07 X10^3/uL; Basophil% 1.1 % (0-1); Hematocrit 44.3 % (37-47); Hemoglobin 14.3 g/dL (12.0-15.0); Lymphocyte # 1.49 X10^3/ul (0.83-4.51); Lymphocyte % 22.6 % (19-41); Mean Corp Hgb Conc 32.3 g/dL (32-36); Mean Corpuscular Hgb 29.2 pg (27.0-32.0); Mean Corpuscular Volume 90.4 fL (81-99); Mean Platelet Vol. 9.8 fl (6.2-12.0); Monocyte# 0.52 X10^3/uL; Monocyte% 7.9 % (0-10); NRBC Flagged by Analyzer 0 % (0-5); Neutrophil # 4.28 X10^3/uL (2.7-7.7); Neutrophil % 65.1 % (47-70); Platelet Count 230 K/mm3 (150-450); RBC Distribution Width CV 12.9 % (11.6-14.6); RBC Distribution Width SD 42.8 fl (35.1-43.9); White Blood Count 6.6 K/mm3 (4.4-11.0)
[2023-04-13 08:21] LABS: Magnesium 2.1 mg/dL (1.6-2.6)
[2023-04-13 08:26] LABS: Anion Gap 6 (5-15); BUN 14 mg/dL (7-18); Calcium,Total 8.9 mg/dL (8.5-10.1); Chloride 108 mmol/L (98-107); Creatinine, Serum 0.74 mg/dL (0.55-1.02); EST Glomerular Filtration Rate 84 mL/min (>60); Est Glom Filt Rate - Afr Amer 102 mL/min (>60); Glucose 100 mg/dL (74-106); Potassium 4.1 mmol/L (3.5-5.1); Sodium Level 140 mmol/L (136-145)
[2023-04-13 08:31] LABS: International Normalized Ratio 1.1; Prothrombin Time (Protime)PT. 13.7 SECONDS (11.7-14.9)
[2023-04-13 08:32] LABS: Partial Thromboplast Time 27.3 Seconds (24.1-36.2)
[2023-04-13 09:15] LABS: Hemoglobin A1c 5.7 % (3.8-5.6)
[2023-04-20 06:08] VITALS: BP 118/85; PULSE 73; RESP 16; TEMP 36.1; O2SAT 94; BMI 34.8
[2023-04-20] MEDS: Magnesium 1 GM over 15 mins IV (06:13)
[2023-04-20] MEDS: Gabapentin 600 MG Tablet PO (06:13)
[2023-04-20] MEDS: Acetaminophen 500 MG Tablet 1000 MG PO (06:13)
[2023-04-20] MEDS: Lactated Ringers 1,000 ML 15 ML IV (06:15)
[2023-04-20 06:40] LABS: Bedside Glucose 137 mg/dL (74-106)
--- NOTE | 2023-04-20 07:30 | KNEE_PTH ---
PATIENT: JAZZY CUMMINGS [place] [facility] [place][id number] AGE/SX: 63/F ROOM: RE04/20/[address]: Dr. Tulio Tinajero DO : 1960 BED: DIS: 04/20/2023 SPEC #: [id number] RECD: 04/20/23 13:19 STATUS: DOROTHY RETyler #: [id number] KYLE: 04/20/23 07:[address]: Tulio Tinajero DEPT: SURGICAL PATHOLOGY RECD BY: Blanche Chapman ENTERED: 04/21/23 07:55 SP TYPE: TOTAL KNEE OTHR DR: Dr. Brigette Saavedra DO Tissues: Knee, NOS Procedures: Decalcification bone/plaque Surgery Specimen Level IV HEADER OPERATION: ERAS, total knee replacement robotic arm assist PRE-OP DIAGNOSIS: Osteoarthritis left knee TISSUE SUBMITTED: Left knee bone and tissue MICROSCOPIC DIAGNOSIS Bone and tissue, left knee, total knee replacement/resection: Pieces of bone with degenerative osteoarthritic changes. Fragments of dense fibroconnective tissue, fibrocartilaginous tissue and reactive synovial tissue. ROBER:camille 04/24/2023 MICROSCOPIC DESCRIPTION Slides are reviewed. GROSS DESCRIPTION Received is one container designated bone and soft tissue left knee. The specimen consists of multiple fragments of doty-yellow bone measuring in aggregate 10.0 x 10.0 x 3.0 cm. Also in the specimen container are two pieces of fibrocartilaginous tissue measuring in aggregate 6.0 x 3.0 x 1.5 cm. A number of bony fragments contain articular surfaces consistent with tibial plateau and femoral condyle and displaying prominent osteophyte formation, eburnation and bone erosion. Flyer Repairer sections are submitted in two cassettes as follows: 1 - soft tissue, 2 - bone after decalcification. / ROBER:camille 04/21/2023 TC:5 CPT: 97462, [id number]
[2023-04-20] MEDS: Cefazolin 2 GM in 0.9% Normal Saline 100 ML IV (07:35)
[2023-04-20] MEDS: JPS (Morphine 10mg/ml) OPERA.SITE (08:56)
[2023-04-20] MEDS: TXA 1000mg in NS100 100ml (IVPB at Incision) 660 MG IV (09:06)
[2023-04-20] MEDS: TXA 1000mg in NS100 100ml (IVPB at Closure) 660 MG IV (09:06)
--- NOTE | 2023-04-20 09:16 | PCM.OPRPT ---
Report of Operation Date of Procedure: 04/20/23 Pre-Operative Diagnosis: OA Left knee Post-Operative Diagnosis: same Surgery/Procedure Performed:: Left TKR Surgeon: Tulio Tinajero head soft sugar operator: Dexter Miller Type of Anesthesia: Spinal Anesthesiologist: Kevyn Mae Estimated Blood Loss (mL): 20 cc Fluids Replaced: 1000 cc crystalloid Admit VTE Documentation VTE Present on Admission: No VTE Mechan Device Prophylaxis: SCD's and Thigh High BRITTANY Hose VTE Pharm Prophylaxis ordered?: Yes
[2023-04-20 09:45] VITALS: BP 100/63; BP 118/85; PULSE 82; RESP 16; TEMP 36.2; O2SAT 100
[2023-04-20 10:00] VITALS: BP 109/72; BP 118/85; PULSE 73; RESP 18; O2SAT 99
--- NOTE | 2023-04-20 10:05 | RAD_ITS ---
STUDY: X-RAY - LEFT KNEE REASON FOR EXAM: Female, 63 years old. Total knee arthroplasty. Initial checkup. TECHNIQUE: 2 view(s) of the knee. COMPARISON: None. FINDINGS: Three component total knee arthroplasty in anatomic position with expected post-operative findings and no complications. RAD/Knee 1 or 2 Views IMPRESSION: Total knee arthroplasty in anatomic alignment without complications. Electronically Signed: Dexter Culver, at 10:19 EDT ,
[2023-04-20 10:15] VITALS: BP 118/67; BP 118/85; PULSE 70; RESP 16; O2SAT 100
[2023-04-20] MEDS: Lactated Ringers 1,000 ML 999 ML IV (10:27)
[2023-04-20 10:30] VITALS: BP 112/67; BP 118/85; PULSE 74; RESP 16; TEMP 36.2; O2SAT 99
[2023-04-20 13:45] VITALS: BP 111/69; BP 118/85; PULSE 80; RESP 16; O2SAT 96
== END 2023-04-20 13:47 | disposition home or self-care (01) ==
LOC: SDC 05:14 → AC 05:14
PROVIDERS: Anesthesiology; PCP Internal Medicine; Referring Provider Orthopaedic Surgery; Visit Provider Orthopaedic Surgery
PROC: 0SRD0JZ Replacement of Left Knee Joint with Synthetic Substitute, Open Approach (ICD-10-PCS; CPT 27447; principal; 2023-04-20 07:00)
DX: M17.12 Unilateral primary osteoarthritis, left knee (principal); G47.30 Sleep apnea, unspecified; I10 Essential (primary) hypertension; E66.9 Obesity, unspecified; R06.02 Shortness of breath; F41.9 Anxiety disorder, unspecified; K21.9 Gastro-esophageal reflux disease without esophagitis; E78.00 Pure hypercholesterolemia, unspecified; Z86.73 Personal history of transient ischemic attack (TIA), and cerebral infarction without residual deficits; Z79.899 Other long term (current) drug therapy; Z87.891 Personal history of nicotine dependence; Z68.35 Body mass index [BMI] 35.0-35.9, adult
CPT/HCPCS: 27447; 64450; 01402; 36415; 73560; 80048; 82962; 83036; 83735; 85025; 85610; 85730; 87081; 88305; 88311; 93005; 97162; C1776; J7120; J2405; J3475

== ENCOUNTER → 2023-04-22 | Outpatient (CLI) | payer BC, SELFPAY ==
--- NOTE | 2023-04-22 12:28 | VDLE_ITS ---
Reason For Study: Left Leg Pain RIGHT LEFT CFV is compressible, spontaneous, phasic, GSV is normal. competent and demonstrates normal CFV is compressible, spontaneous, phasic, augmentation. competent, and demonstrates normal Procedure augmentation. This is a venous duplex using B-mode, color FV is compressible, spontaneous, phasic, flow and spectral Doppler. competent and demonstrates normal Exam performed in department. augmentation. The exam was diagnostic. POP V is compressible, spontaneous, phasic, A preliminary report was called and/or faxed competent and demonstrates normal to [facility]. augmentation. T/P Trunk is compressible. PTV is compressible. LT PerV is compressible. VL/Venous Duplex US, Unilateral Interpretation Summary Deep veins of the left lower extremity are patent and compressible segmentally. There is no evidence of left lower extremity deep vein thrombosis. The left great saphenous vein noemi ears patent and compressible segmentally. Ordering Physician: Tulio Tinajero Referring Physician: Brigette Saavedra M.D. Performed By: Vick Downey RVT
== END | disposition home or self-care (01) ==
LOC: CVS 12:22
PROVIDERS: PCP Internal Medicine; Referring Provider Orthopaedic Surgery; Visit Provider Orthopaedic Surgery
DX: M79.605 Pain in left leg (principal)
CPT/HCPCS: 93971

== ENCOUNTER → 2023-07-29 | Outpatient (CLI) | payer BC, SELFPAY ==
--- NOTE | 2023-07-29 14:58 | CT_ITS ---
STUDY: CT ABDOMEN AND PELVIS WITH CONTRAST - URINARY TRACT REASON FOR EXAM: Female, 63 years old. RLQ PAIN. PRIOR HYSTERECTOMY, CHOLECYSTECTOMY AND HERNIA REPAIR RADIATION DOSAGE (If Supplied By Facility): CTDIvol = ( 17.51 ) mGy, DLP = ( 1127.82 ) mGycm TECHNIQUE: Oral and amp; IV Readi-CAT and amp; 100mL Isovue-300 was administered. Transaxial images were obtained from the dome of the diaphragm to the symphysis pubis subsequent to intravenous contrast administration. Multiplanar coronal and sagittal images were reformatted. Individualized Dose Optimization Techniques Were Used For This CT. COMPARISON: Prior study dated: January 08, 2018 FINDINGS: There is a persistent partially visualized intrathoracic stomach. There is a small left pleural effusion associated with left lower lobe consolidation. There is minimal right basilar atelectasis. There are stable scattered well-circumscribed low-attenuation foci within the liver suggestive of cysts or hemangiomas. There is non-visualization of the gallbladder, which may be secondary to either contraction or a prior cholecystectomy. Normal spleen. Normal pancreas. Normal bilateral adrenal glands. Normal visualized stomach. Normal small intestine. There is circumferential wall thickening of the ascending and transverse colon. There is intraluminal fat within the adjacent transverse colon as well. The appendix is visualized and appears normal. Normal abdominal aorta. No retroperitoneal adenopathy. Normal right kidney. Normal left kidney. Normal urinary bladder. Within the right adnexa there is a 3.9 x 3.7 x 2.9 cm cystic focus which is increased in size since the prior examination previously measuring 2.1 x 2.6 x 2.1 cm. Normal abdominal wall. Normal osseous structures. CT/Abdomen/Pelvis WITH Contrast IMPRESSION: Interval enlargement of the right adnexa measuring 3.9 x 3.7 x 2.9 cm, cannot exclude neoplastic process. Circumferential wall thickening of the ascending and transverse colon associated with intramural fat suggestive of prior inflammation, cannot exclude acute on chronic colitis. Intrathoracic stomach. Small left pleural effusion associated with left lower lobe consolidation. Electronically Signed: Christina Summers MD at 17:32 EDT ,
[2023-07-29 17:25] LABS: CREATININE FINGERSTICK < 0.9 mg/dL (0.55-1.02); EGFR FINGERSTICK > 60.0000 mL/min (>60)
== END | disposition home or self-care (01) ==
LOC: CT 14:56
PROVIDERS: PCP Internal Medicine; Referring Provider Internal Medicine; Visit Provider Internal Medicine
DX: R10.31 Right lower quadrant pain (principal)
CPT/HCPCS: 74177; Q9967

== ENCOUNTER → 2023-10-20 | Outpatient (CLI) | payer BC, SELFPAY ==
[2023-10-21 09:09] LABS: Cancer Antigen 125 22.5 U/mL (0.0-38.1); Carcinoembryonic Antigen 1.6 ng/mL (0.0-4.7)
== END | disposition home or self-care (01) ==
LOC: PAVLAB 11:49
PROVIDERS: PCP Internal Medicine; Referring Provider Obstetrics & Gynecology; Visit Provider Obstetrics & Gynecology
DX: N83.8 Other noninflammatory disorders of ovary, fallopian tube and broad ligament (principal)
CPT/HCPCS: 36415; 82378; 86304

== ENCOUNTER → 2023-10-28 | Outpatient (CLI) | payer BC, SELFPAY ==
--- NOTE | 2023-10-28 07:55 | US_ITS ---
STUDY: ULTRASOUND OF THE FEMALE PELVIS - COMPLETE REASON FOR EXAM: Female, 63 years old. Cyst on ovary LMP: The patient is status post hysterectomy. TECHNIQUE: Transabdominal and Transvaginal TECHNICAL QUALITY: Adequate. COMPARISON: None. FINDINGS: The patient is status post hysterectomy. The right ovary is visualized. The right ovary measures 2.6 cm x 2.7 cm x 2.3 cm. Multiple small follicles are seen in the right ovary. There is no visualized right adnexal mass or complex lesion. There is normal arterial and normal venous vascularity. The left ovary is visualized. The left ovary measures 2.7 cm x 1.7 cm x 1.8 cm. There is a septated cyst in the left ovary measuring 2.1 cm x 2.1 cm x 1.4 cm. There is no visualized left adnexal mass or complex lesion. There is normal arterial and normal venous vascularity. There is no fluid in the cul-de-sac. The pre void volume of the bladder was 306 ml. US/Pelvic (Non ) IMPRESSION: Status post hysterectomy. Multiple small follicles are seen in the right ovary. There is a 2.1 cm x 2.1 cm x 1.4 cm septated cyst in the left ovary. Electronically Signed: Ashutosh Dobbisn MD at 15:26 EST ,
== END | disposition home or self-care (01) ==
LOC: OPUS 07:53
PROVIDERS: PCP Internal Medicine; Referring Provider Obstetrics & Gynecology; Visit Provider Obstetrics & Gynecology
DX: R10.2 Pelvic and perineal pain (principal); N83.8 Other noninflammatory disorders of ovary, fallopian tube and broad ligament
CPT/HCPCS: 76830; 76856

== ENCOUNTER → 2023-12-17 | Outpatient (CLI) | payer BC, SELFPAY ==
--- NOTE | 2023-12-17 15:17 | US_ITS ---
STUDY: ULTRASOUND OF THE FEMALE PELVIS - COMPLETE REASON FOR EXAM: Female, 63 years old. ovarian mass [id number] LMP: TECHNIQUE: Transabdominal and Transvaginal TECHNICAL QUALITY: Adequate. COMPARISON: CT scan 07/29/2023. FINDINGS: The uterus is surgically absent The right ovary is visualized. The right ovary measures 4.1 x 3.6 x 3.1 cm. Numerous cysts are seen throughout the ovary without a dominant cyst. There is normal arterial and normal venous vascularity. The left ovary is visualized. The left ovary measures 3.0 x 2.3 x 1.5 cm. There is a 1.4 cm cyst. There is no visualized left adnexal mass or complex lesion. There is normal arterial and normal venous vascularity. There is no fluid in the cul-de-sac. The pre void volume of the bladder was 465 ml. US/Pelvic w/ Transvaginal IMPRESSION: Right ovary is essentially replaced by numerous cysts no more than 1.5 cm size. No solid mass seen. Electronically Signed: Flaco Velasco MD at 19:45 EST ,
== END | disposition home or self-care (01) ==
LOC: US 15:16
PROVIDERS: PCP Internal Medicine; Referring Provider Obstetrics & Gynecology; Visit Provider Obstetrics & Gynecology
DX: N83.201 Unspecified ovarian cyst, right side (principal)
CPT/HCPCS: 76830; 76856

== ENCOUNTER → 2024-01-27 | Outpatient (CLI) | payer BC, SELFPAY ==
--- NOTE | 2024-01-27 08:22 | BD_ITS ---
STUDY: DUAL ENERGY X-RAY ABSORPTIOMETRY / DXA REASON FOR EXAM: Female, 63 years old. Z780 TECHNIQUE: Bone Mineral Density (BMD) measurements of lumbar spine and bilateral hips were obtained. COMPARISON: Comparison is made with prior study May 10, 2019. FINDINGS: Lumbar Spine (L1-L4): g/cm2 (0.821) / T-score (-2.1) / Z-score (-0.3) Findings are suggestive of osteopenia with a high fracture risk. Left Femur Total: g/cm2 (0.827) / T-score (-0.9) / Z-score (0.3) Left Femoral Neck: g/cm2 (0.673) / T-score (-1.6) / Z-score (-0.1) Right Femur Total: g/cm2 (0.855) / T-score (-0.7) / Z-score (0.5) Right Femoral Neck: g/cm2 (0.661) / T-score (-1.7) / Z-score (-0.2) The T-Scores on the most recent prior examination were: Lumbar Spine (L1-L4): There has been worsening of bone density since the previous examination. Left Femur Total: which represents a worsening of 6.1%. Right Femur Total: which represents an improvement of 1.4%. BD/Dexa Bone Density Study IMPRESSION: The patient is considered osteopenic as outlined below according to World Zhang Organization (WHO) criteria with a high fracture risk. There has been worsening of bone density since the previous examination. Reference Information: The T-score is the number of standard deviations above or below the standard which is normal for young adults at their peak bone mineral density. The World Health Organization (WHO) interprets the T-scores as follows: Above -1 Normal bone density Between -1 and -2.5 Osteopenia Equal to / or below -2.5 Osteoporosis As a practical clinical guideline, osteopenia may be graded as follows: Mild -1 through -1.5 Moderate -1.6 through -2.0 Severe -2.1 through -2.4 The Z-score is the number of standard deviations above or below age-matched controls. A Z-score of less than -1.5 would be considered abnormal. References: 1. NIH Osteoporosis and Related Bone Diseases www osteo.org 2. International Society for Clinical Densitometry www iscd.org 3. National Osteoporosis Foundation www nof.org Electronically Signed: Ashutosh Dobbins MD at 8:43 EST ,
--- NOTE | 2024-01-27 08:22 | BI_ITS ---
MAMMOGRAPHY - BILATERAL SCREENING REASON FOR EXAM: Female, 63 years old. Routine annual screening examination. PERTINENT HISTORY: Non-contributory. TECHNIQUE: Digital bilateral breast chapin (3D mammographic acquisition) in the CC and MLO projections. 2-D mediolateral oblique (MLO) and craniocaudad (CC) views of both breasts were obtained. CAD: Full Field Digital Mammography with Computer Added Detection was performed. COMPARISON: Comparison is made with prior study dated January 23, 2023 and December 20, 2021. FINDINGS: Breast Composition: There are scattered areas of fibroglandular density. There are no dominant masses or suspicious calcifications. No other significant abnormalities are identified. There has been no significant change since the prior study. BI/SCRN MAMM (CAD)W/CHAPIN BILAT IMPRESSION: Stable bilateral screening mammogram. Yearly follow-up mammogram recommended. (A) ASSESSMENT CATEGORY: BIRADS Category 1: Negative. A letter regarding these results will be sent to the patient by the facility within 30 days. Approximately 10% of breast cancers are not detected by mammography. A normal mammogram should not delay biopsy of a clinically suspicious abnormality. [id number] Electronically Signed: Ashutosh Dobbins MD at 12:06 EST ,
== END | disposition home or self-care (01) ==
LOC: OPBI 08:59
PROVIDERS: PCP Internal Medicine; Visit Provider Obstetrics & Gynecology
DX: Z12.31 Encounter for screening mammogram for malignant neoplasm of breast (principal); Z78.0 Asymptomatic menopausal state
CPT/HCPCS: 77063; 77067; 77080

== ENCOUNTER 2024-02-09 09:55 | Day surgery (SDC) | payer BC, SELFPAY ==
[2024-01-29 17:09] LABS: Hematocrit 41.3 % (37-47); Hemoglobin 13.3 g/dL (12.0-15.0); Mean Corp Hgb Conc 32.2 g/dL (32-36); Mean Corpuscular Hgb 28.5 pg (27.0-32.0); Mean Corpuscular Volume 88.4 fL (81-99); Platelet Count 230 K/mm3 (150-450); RBC Distribution Width CV 13.4 % (11.6-14.6); RBC Distribution Width SD 43.4 fl (35.1-43.9); Red Blood Count 4.67 M/mm3 (4.2-5.4); White Blood Count 7.5 K/mm3 (4.4-11.0)
--- NOTE | 2024-02-09 10:27 | HP.PCM_ITS ---
History and Physical Date of Admission: 02/09/24 Intake Vital Signs 01/06/2414:35 02/04/2411:16 02/04/2411:17 Height 5 ft 6 in 5 ft 6 in 5 ft 6 in Weight: 215 lb 4 oz 221 lb 8 oz BMI 34.7 35.7 BP 140/91 H 144/93 H Blood Pressure Location Lt brachial Position Sitting Respiration 18 Pulse 84 Pulse Source Monitor Temp 97.6 F L Pulse Oximetry (%) 95 Oxygen Delivery Method room air Intake Visit Reasons: BSO WSA combo Allergies No Known Allergies Allergy (Verified 02/05/24 11:16) Medications clopidogrel 75 mg tablet 75 mg PO DAILY 01/10/14 [History Confirmed 02/05/24] lisinopril 5 mg tablet 5 mg PO BID 07/04/15 [History Confirmed 02/05/24] citalopram 10 mg tablet 10 mg PO DAILY 01/15/17 [History Confirmed 02/05/24] pantoprazole 40 mg tablet,delayed release 40 mg PO DAILY GERD 01/15/17 [History Confirmed 02/05/24] cetirizine 10 mg tablet 10 mg PO DAILY 01/20/18 [History Confirmed 02/05/24] atorvastatin 80 mg tablet 40 mg PO DAILY 10/20/23 [History Confirmed 02/05/24] Post menopausal: No Patient : No : No PFSH Medical History Alcohol use Anemia Anxiety Arthritis Bilateral carotid artery stenosis Cancer Chronic anticoagulation CPAP (continuous positive airway pressure) dependence Gastric reflux High cholesterol History of CVA (cerebrovascular accident) History of echocardiogram History of hiatal hernia History of pain when walking History of stress test Hx of vertigo Hypertension Migraine headache Non-smoker nontoxic unilateral goiter Osteoarthritis Osteopenia Seborrheic keratosis Shortness of breath on exertion TIA (transient ischemic attack) Umbilical hernia Wears glasses Surgical History History of hysterectomy History of knee replacement procedure of left knee History of laparoscopic cholecystectomy History of tubal ligation Hx of hernia repair S/P colonoscopy Status post right knee replacement Status post surgical removal of malignant neoplasm of skin Family History Mother HypertensionFather COPD (chronic obstructive pulmonary disease) Social History Smoking Status: Never smoker alcohol intake: never substance use type: does not use caffeine: Yes what type of physical activity do you participate in: walking and other details: pedals while sitting down frequency: 3-4 times per week seatbelt use: always do you feel safe at home: Yes additional social history: - Isaias HPI BSO WSA combo Details: JAZZY CUMMINGS is a 63 year old who presents for a preoperative exam for a laparoscopic bso for persistent ovarian cysts. She continues to have persistent mild to moderate pain. initally she had a CT by her pcp that showed a mildly complex cyst with largest dimension of 3.9 cm in June. In September the cyst had gotten smaller, measuring Multiple small follicles are seen in the right ovary. There is a 2.1 cm x 2.1 cm x 1.4 cm septated cyst in the left ovary. . She denies weight loss or abdominal distention. Her biggest complaint today is actually an abdominal wall mass that hurts when she leans against the counter. History 2 Elective abortions Hx Para 2 Spontaneous abortions Hx # Term Pregnancies Ectopic pregnancies Hx # Pregnancies Multiple births # of living children Past Pregnancies Del. Date Name GA/Weeks Outcome Route Bth Weight Infant Gen Labor Lgth Anesthesia Del Locatn Provider FOB Unknown Mariama Unknown Marilia ROS Const ROS Unobtainable: All systems reviewed & are unremarkable except as noted in H Resp Resp: Reports system reviewed and no additional complaints, except as documented; Denies cough GI GI: Reports as per HPI Psych Psych: Reports system reviewed and no additional complaints, except as document ed Exam Const General: cooperative, healthy appearing, comfortable and no acute distress Resp Effort & Inspection: normal respiratory effort Skin General: no rashes or lesions noted Psych Appearance: grossly normal Speech and Movement: speech and movement normal Coding Level of Care Code Off vis,est,level 4 Diagnoses Ovarian mass, right N83.8 Lipoma of torso D17.1 Lipoma location: trunk Incisional hernia, without obstruction or gangrene K43.2 Abdominal pain R10.9 Assessment and Plan Assessment and Plan (1) Ovarian mass, right: Status: Acute (2) Lipoma: Status: Acute Qualifiers: Lipoma location: trunk Qualified Code(s): D17.1 - Benign lipomatous neoplasm of skin and subcutaneous tissue of trunk (3) Incisional hernia, without obstruction or gangrene: Status: Acute (4) Abdominal pain: Status: Acute Plan After discussing the patient's diagnosis and treatment plan options, patient wishes to proceed with surgical management. I have discussed with the patient the risks, benefits, and alternatives of the procedure which include but are not limited to risks of anesthesia, bleeding, infection, possible damage to bowel, bladder, or surrounding vasculature which could lead to additional surgery to evaluate any complications. Patient agrees to procedure and wishes to proceed. ACOG/uptodate references given for additional information regarding procedure. I will perform a laparoscopic bSO and Dr. Dugan will open and close the hernia and remove her lipoma.
[2024-02-09 10:33] VITALS: BP 114/92; PULSE 80; RESP 18; TEMP 36.4; O2SAT 96; BMI 35.3
--- NOTE | 2024-02-09 10:56 | HP.PCM_ITS ---
History and Physical Date of Admission: 02/09/24 Intake Vital Signs 12/07/2407:21 01/06/2414:35 Height 5 ft 6 in 5 ft 6 in Weight: 215 lb 4 oz BMI 34.7 BP 140/91 H Blood Pressure Location Lt brachial Position Sitting Respiration 18 Pulse 84 Pulse Source Monitor Temp 97.6 F L Temp Source Temporal Pulse Oximetry (%) 95 Oxygen Delivery Method room air Intake Visit Reasons: LIPOMA ON ABDOMEN Chief Complaint: lipoma on abdomen Bag Washer Required: No Is patient in pain?: No Allergies No Known Allergies Allergy (Verified 01/06/24 14:36) Medications clopidogrel 75 mg tablet 75 mg PO DAILY 01/10/14 [History Confirmed 01/06/24] lisinopril 5 mg tablet 5 mg PO BID 07/04/15 [History Confirmed 01/06/24] citalopram 10 mg tablet 10 mg PO DAILY 01/15/17 [History Confirmed 01/06/24] pantoprazole 40 mg tablet,delayed release 40 mg PO DAILY GERD 01/15/17 [History Confirmed 01/06/24] cetirizine 10 mg tablet 10 mg PO DAILY 01/20/18 [History Confirmed 01/06/24] atorvastatin 80 mg tablet 40 mg PO QODAY 10/20/23 [History Confirmed 01/06/24] [facility] Medical History Abdominal pain Alcohol use Anemia Anxiety Arthritis Bilateral carotid artery stenosis Cancer Chronic anticoagulation Chronic sinusitis Colon polyps CPAP (continuous positive airway pressure) dependence Gastric reflux High cholesterol History of CVA (cerebrovascular accident) History of echocardiogram History of hiatal hernia History of pain when walking History of stress test Hx of vertigo Hyperlipidemia Hypertension Melanoma Migraine headache Non-smoker nontoxic unilateral goiter Osteoarthritis Osteopenia Paresthesia Seborrheic keratosis Shortness of breath on exertion Sleep apnea Squamous cell carcinoma TIA (transient ischemic attack) Umbilical hernia Wears glasses Surgical History History of hysterectomy History of knee replacement procedure of left knee History of laparoscopic cholecystectomy History of tubal ligation Hx of hernia repair S/P colonoscopy Status post right knee replacement Status post surgical removal of malignant neoplasm of skin Family History Mother HypertensionFather COPD (chronic obstructive pulmonary disease) Social History Smoking Status: Never smoker alcohol intake: never substance use type: does not use caffeine: Yes what type of physical activity do you participate in: walking and other details: pedals while sitting down frequency: 3-4 times per week seatbelt use: always do you feel safe at home: Yes additional social history: - Isaias HPI HPI HPI: Patient is here for lipoma that is becoming larger and more uncomfortable. She is having surgery by another physician soon and would like this lipoma removed during surgery. ROS General General: No weight change or fatigue HEENT HEENT: No difficulty swallowing Endo Endocrine: No thyroid disease Musc Musculoskeletal: No back problems or arthritis Cardio Cardiovascular: No pacemaker, heart disease, atrial fibrillation, high blood pressure, heart attack, heart stent, palpitations or chest pain Psych Psychiatric: Yes anxiety Resp Respiratory: Yes sleep apnea Gastro Gastrointestinal: Yes acid reflux Quang Hematologic: Yes blood thinners Neuro Neurologic: Yes other Exam Const General: cooperative Orientation: alert and oriented x3 HENMT Head: normal to inspection Neck Neck: normal visual inspection and full ROM Chest Chest palpation & inspection: normal inspection of the chest Resp Effort & Inspection: normal respiratory effort Auscultation: clear to auscultation bilaterally Cardio Rate: regular rate Rhythm: regular rhythm GI Inspection: non-distended Palpation: soft, hernia ventral and nontender Skin General: no rashes or lesions noted Neuro General: patient alert and patient oriented x3 Extrem General: full ROM Psych Appearance: grossly normal Mental Status: mental status grossly normal Assessment and Plan Assessment and Plan (1) Lipoma: Status: Acute Qualifiers: Lipoma location: trunk Qualified Code(s): D17.1 - Benign lipomatous neoplasm of skin and subcutaneous tissue of trunk Plan: The patient has a lipoma on her anterior abdomen just right and inferior of the umbilicus. I discussed removing this for her during surgery. Patient would like this done and I discussed the risks of bleeding and infection. I also discussed the risks of injury to underlying organs. I also noted that the patient has a ventral hernia from her cholecystectomy. The patient has also had ventral hernia repair at the umbilicus with mesh. Reviewing her CAT scan it appears the mesh does not reach up to the area where the hernia is. I discussed with Dr. Dorman going through the hernia and using this as our port site and then repairing with sutures on the way out. I will start the surgery for her and gain access to the abdomen and then come back at the end to remove the lipoma and closed the hernia. Ta Dugan MD Pager: [facility] [address] [place] [address], [address] [place] [address] Office: I have examined the patient and the H&P has been reviewed. There are no clinical changes since date of exam.
[2024-02-09] MEDS: Bupivacaine 0.25% 30 ML Vial (12:44)
--- NOTE | 2024-02-09 13:38 | HERN_PTH ---
PATIENT: JAZZY CUMMINGS [place]: [facility] [place] U#:[id number] AGE/SX: 63/F ROOM: RE02/09/[address]: Dr. Didi Rios DO : 1960 BED: DIS: 02/09/2024 SPEC #: [id number] RECD: 02/09/24 13:39 STATUS: DOROTHY FELY #: [id number] KYLE: 02/09/24 13:[address]: Didi Rios DEPT: SURGICAL PATHOLOGY RECD BY: Blanche Chapman ENTERED: 02/10/24 09:32 SP TYPE: Hernia OTHR DR: Dr. Brigette Saavedra DO Tissues: A - HERNIA B - Ovary, NOS Procedures: Surgery Specimen Level III Surgery Specimen Level V HEADER OPERATION: Ventral hernia repair, Lipoma excision, Right oophorectomy PRE-OP DIAGNOSIS: Right ovarian mass, Lipoma, Ventral hernia TISSUE SUBMITTED: A. Lipoma, abdominal wall B. Right ovary MICROSCOPIC DIAGNOSIS A. Abdominal wall mass, excision; Mature adipose tissue (lipoma). B. Right ovary, oophorectomy; Serous cyst adenofibroma. CATHY/ 02/11/2024 COMMENT Case has been reviewed in consultation with Dr. Solano who concurs with the above diagnosis. IDC:ROBER MICROSCOPIC DESCRIPTION Slides are reviewed. GROSS DESCRIPTION A. Received in fixative is one container labeled with the patient's name and designated Lipoma, abdominal wall. The specimen consists of multiple irregular fragments of yellow adipose tissue that in aggregate measure 5.0x 4.5x1.0cm. Sections reveal yellow adipose cut surfaces without area of hemorrhage, necrosis or cystic degeneration. Carpet Tile Layer sections are submitted in two cassettes. B. Received in fixative is one container labeled with the patient's name and designated Right ovary. The specimen consists of a fallopian tube and ovary. Fallopian tube measures 4cm in length and 0.5 cm in diameter. The fimbrial end is identified. Sections reveal that unremarkable cut surfaces. Soft to cystic ovary measuring 4.0x3.5x2.5cm and weighs 17.6 grams. Outer surface does not show any papillation and is inked black. Sections revealed the entire ovary is replaced by the multi loculated cyst filled with clear fluid. ROBER/ 02/10/24 TC:1 CPT: 85979,37756
--- NOTE | 2024-02-09 16:31 | PCM.OPRPT ---
Problems Associated Problem List Diagnoses (1) Lipoma: (2) Ovarian mass, right: (3) Abdominal pain: (4) Pelvic adhesions: Report of Operation Date of Procedure: 02/09/24 Pre-Operative Diagnosis: persistent bilateral ovarian cysts, pelvic pain, abdominal wall lipoma, abdominal wall hernia Post-Operative Diagnosis: persistent bilateral ovarian cysts, pelvic pain, abdominal wall lipoma, abdominal wall hernia, severe pelvic adhesive disease Surgery/Procedure Performed:: laparoscopic right oophorectomy, lysis of adhesions, drainage of left ovarian cyst Description of Surgical Findings:: Dense adhesions to the anterior abdominal wall, dense pelvic adhesions to the vaginal cuff and cul-de-sac, to the left ovary, and side zamudio. Right ovary with multiple simple cysts Surgeon: Didi Rios morning babysitter: Ta Dugan Type of Anesthesia: General Specimen's removed: right ovary and fallopian tube. Dr. Dugan removed a lipoma Drains: none Estimated Blood Loss (mL): 30cc Description of Procedure: The patient was brought to the operating room, placed in a supine position with legs in stirrups. Dr. Dugan started his portion of the procedure that will be dictated separate. Using the previously created incisions and trocar sites as well as a 5 mm left lower quadrant port site, a laparoscopic grasper and LigaSure were used to dissect fine and dense adhesions off the pelvic side zamudio and off the vaginal cuff and cul-de-sac. The right ovary was exposed after minimal dissection and the LigaSure device was used to cauterize and cut the IP ligament and ovarian artery. Excellent hemostasis was achieved, the specimen was placed in an EndoCatch bag while we continued to operate, dissecting off adhesions from the pelvis. Dr. Dugan and myself took turns performing both blunt and sharp dissection as well as dissection using the cautery device. After several attempts to remove adhesions from the left ovary, the procedure was deemed too dangerous to continue in fear of damage to the bowel and vasculature. The ovary was removed through the laparoscopic port site. The largest midline port site fascia was closed with a 1-0 vicryl in an interrupted fashion. The skin was closed with a 4-0 Monocryl. The patient tolerated the procedure well. Sponge, lap, needle counts were correct x 2. Complications none Admit VTE Documentation VTE Present on Admission: No VTE Mechan Device Prophylaxis: SCD's VTE Pharm Prophylaxis ordered?: No Multi Select Codes Urinary/Genital Urinary/Genital CPT Codes: 73780-94 LAPARO REMOVE ADNEXA BILAT
--- NOTE | 2024-02-09 17:36 | PCM.OPRPT ---
Report of Operation Date of Procedure: 02/09/24 Pre-Operative Diagnosis: 1. Ventral hernia 2. Subcutaneous lipoma ventral abdomen Post-Operative Diagnosis: Same Surgery/Procedure Performed:: Excision of subcutaneous lipoma 6 cm Type of Anesthesia: General/Regional Specimen's removed: Right lower abdomen subcutaneous lipoma Description of Procedure: Patient was brought back to the operating room and general anesthesia was induced. The patient was placed in the stirrups. Next the abdomen was prepped and draped in usual sterile fashion. The left upper quadrant incision was made and a 5 mm port was used to enter the abdomen using Visiport technique. The abdomen is insufflated 15 mmHg. There appeared to be adhesions to the old mesh. Superior to the old mesh the hernia was identified and an incision was made directly over the hernia. It was deep into the subcutaneous tissue and the anterior fascia was completed circumferentially. The fascia was elevated and the abdomen was entered and a 12 mm ports placed into the abdomen. Next under direct visualization a 5 mm port was placed in the right lower quadrant. Next just medial to the right lower quadrant port where the lipoma was located the incision was lengthened. The lipoma was dissected free using electrocautery. It measured approximately 6 cm in diameter. It was sent for pathology. The skin was closed with interrupted 3-0 Vicryl sutures and a running 4-[address] Dorman took over and performed her portion of the procedure. The ventral hernia was closed with interrupted 0 Nurolon sutures at the end of the case the close the port site. Please see Dr. Aguilar operative note for her portion of the case Admit VTE Documentation VTE Mechan Device Prophylaxis: SCD's
== END 2024-02-09 15:16 | disposition home or self-care (01) ==
LOC: SDC 09:55 → AC 09:56
PROVIDERS: Surgery; PCP Internal Medicine; Referring Provider Internal Medicine; Visit Provider Obstetrics & Gynecology
PROC: (CPT 58661; principal; 2024-02-09 11:25)
PROC: (CPT 22905; 2024-02-09 11:25)
DX: D27.0 Benign neoplasm of right ovary (principal); D17.1 Benign lipomatous neoplasm of skin and subcutaneous tissue of trunk; K43.2 Incisional hernia without obstruction or gangrene; N73.6 Female pelvic peritoneal adhesions (postinfective); I10 Essential (primary) hypertension; E78.00 Pure hypercholesterolemia, unspecified; Z90.49 Acquired absence of other specified parts of digestive tract; Z79.02 Long term (current) use of antithrombotics/antiplatelets; Z79.899 Other long term (current) drug therapy; Z86.73 Personal history of transient ischemic attack (TIA), and cerebral infarction without residual deficits
CPT/HCPCS: 58661; 49322; 58660; 22905; 00840; 36415; 85027; 86850; 86900; 86901; 88302; 88304; 88305; 88307; J2405

== ENCOUNTER → 2024-04-22 | Outpatient (CLI) | payer BC, SELFPAY ==
--- NOTE | 2024-04-22 09:38 | CDU_ITS ---
Reason For Study: carotid stenosis Rt. Velocities/BP Lt. Velocities/BP Prox CCA 89.1/19.2 cm/sec. Prox CCA 97.7/19.2 cm/sec. Mid CCA 57.2/13.8 cm/sec. Mid CCA 73.2/24.1 cm/sec. Dist CCA 59.1/14.7 cm/sec. Dist CCA 80.6/30.2 cm/sec. Prox ICA 69.5/17.6 cm/sec. Prox ICA 64.6/20.4 cm/sec. Mid ICA 75.2/22.3 cm/sec. Mid ICA 79.8/28.1 cm/sec. Dist ICA 114.6/34.4 cm/sec. Dist ICA 85.3/32.5 cm/sec. Rt. ICA/CCA = 114.6/57.2=2.0. Lt. ICA/CCA = 85.3/73.2=1.2. Prox ECA 60.1/13.8 cm/sec. Prox ECA 100.2/17.9 cm/sec. Rt. Vert. 24.0/6.9 cm/sec. Lt. Vert. 45.7/17.1 cm/sec. Right Extracranial There is intimal thickening but no significant atherosclerotic plaque noted in the right common carotid artery. There is intimal thickening but no significant atherosclerotic plaque noted in the right internal carotid artery. There is intimal thickening but no significant atherosclerotic plaque noted in the right external carotid artery. Antegrade flow is noted in the right vertebral artery. Left Extracranial There is intimal thickening but no significant atherosclerotic plaque noted in the left common carotid artery. There is intimal thickening but no significant atherosclerotic plaque noted in the left internal carotid artery. There is intimal thickening but no significant atherosclerotic plaque noted in the left external carotid artery. Antegrade flow is noted in the left vertebral artery. Procedure Carotid Duplex [id number]. This is a Carotid Duplex examination using B-mode, color flow and specral Doppler. Exam performed in department. VL/Carotid Duplex Ultrasound Interpretation Summary Normal right extracranial internal carotid. Normal left extracranial internal carotid. Patent and antegrade vertebrals bilaterally. Ordering Physician: Steff Vazquez Referring Physician: Brigette Saavedra Performed By: Brenda Adair, LINDSEY, RVT
== END | disposition home or self-care (01) ==
LOC: CVS 09:36
PROVIDERS: PCP Internal Medicine; Referring Provider Nurse Practitioner Family; Visit Provider Nurse Practitioner Family
DX: I65.23 Occlusion and stenosis of bilateral carotid arteries (principal)
CPT/HCPCS: 93880

== ENCOUNTER → 2024-09-16 | Outpatient (CLI) | payer BC, SELFPAY ==
--- NOTE | 2024-09-16 08:29 | CT_ITS ---
EXAM: CT ABDOMEN WITHOUT INTRAVENOUS CONTRAST CLINICAL INDICATION: ventral hernia -- no oral or IV contrast/ for poss recurrent hernia TECHNIQUE: Helically acquired images were obtained of the abdomen without intravenous contrast. This CT exam was performed using one or more of the following dose reduction techniques: automated exposure control, adjustment of the mA and/or kV according to patient size, and/or use of iterative reconstruction technique. COMPARISON: 07/29/2023 FINDINGS: LOWER THORAX: Large left hiatal hernia with intrathoracic stomach and partially intrathoracic pancreas. Lung bases are clear. No cardiomegaly. No significant pericardial effusion. LIVER: Hepatic cysts are present for which no follow-up is indicated. GALLBLADDER AND BILE DUCTS: Status post cholecystectomy. No intra- or extrahepatic biliary ductal dilation. PANCREAS: No significant abnormality. No focal cystic mass. No focal pancreatic abnormality is identified. SPLEEN: No significant abnormality. Normal size without focal cystic or solid mass. ADRENALS: No significant abnormality. No nodules. KIDNEYS AND URETERS: No significant abnormality. Normal renal size and position. No hydronephrosis. STOMACH AND BOWEL: No significant abnormality. No stomach or bowel distention. No focal inflammatory change. INTRAPERITONEAL SPACE: No significant abnormality. No ascites or other fluid collection. No free air. BONES/JOINTS: No significant abnormality. No suspicious lytic or blastic abnormality. SOFT TISSUES: Fat-containing ventral abdominal wall hernia with 2.4 cm fascial defect. No inflammatory changes. VASCULATURE: No significant abnormality. Abdominal aorta is non-dilated. LYMPH NODES: No enlarged lymph nodes. CT/Abdomen without IV Contrast IMPRESSION: 1. Large left hiatal hernia with intrathoracic stomach and partially intrathoracic pancreas. This appears similar to the prior examination. 2. Fat-containing ventral abdominal wall hernia with 2.4 cm fascial defect. No inflammatory changes. This appears similar to the prior examination. 3. No evidence of bowel obstruction. Electronically Signed: Yunior Penny DO at 21:29 EDT ,
== END | disposition home or self-care (01) ==
LOC: CT 08:26
PROVIDERS: PCP Internal Medicine; Referring Provider Surgery; Visit Provider Surgery
DX: K43.2 Incisional hernia without obstruction or gangrene (principal)
CPT/HCPCS: 74150

== ENCOUNTER 2024-11-18 09:49 | Day surgery (SDC) | payer BC, SELFPAY ==
[2024-11-18] VITALS (11 sets, daily range): BP systolic 98–135; BP diastolic 62–82; PULSE 59–80; RESP 16–18; TEMP 36.2–36.3; O2SAT 92–100; BMI 35.5
--- NOTE | 2024-11-18 | HERN_PTH ---
PATIENT: JAZZY CUMMINGS [place] [facility] [place][id number] AGE/SX: 64/F ROOM: RE11/18/[address]: Dr. Ta Dugan MD : 1960 BED: DIS: 11/18/2024 SPEC #: [id number] RECD: 11/18/24 13:30 STATUS: DOROTHY RETyler #: [id number] KYLE: 11/18/24 00:[address]: Ta Dugan DEPT: SURGICAL PATHOLOGY RECD BY: Brian Horn ENTERED: 11/18/24 13:30 SP TYPE: Hernia OTHR DR: Dr. Brigette Saavedra, DO Tissues: HERNIA Procedures: Surgery Specimen Level II HEADER OPERATION: Laparoscopic hybid incisional hernia with mesh PRE-OP DIAGNOSIS: Incisional hernia without obstruction or gangrene TISSUE SUBMITTED: Hernia sac MICROSCOPIC DIAGNOSIS Hernia sac, excision: Pieces of fibroadipose tissue, consistent with hernia.sac. 11/21/2024 MICROSCOPIC DESCRIPTION Slides are reviewed. GROSS DESCRIPTION Received in fixative is one container labeled with the patient's name and designated Hernia sac. The specimen consists of multiple pieces of pink soft tissue mixed with adipose tissue measuring in aggregate 4.5 x 4.0 x 1.0cm. No mass lesion is identified. Medical Pathologist sections are submitted in one cassette. 11/18/2024 TC: 5 CPT:63109
--- NOTE | 2024-11-18 10:09 | EKG12_ITS ---
Test Reason : PREOP Blood Pressure : */* mmHG Vent. Rate : 69 BPM Atrial Rate : 69 BPM P-R Int : 130 ms QRS Dur : 74 ms QT Int : 416 ms P-R-T Axes : 12 6 31 degrees QTcB Int : 445 ms Normal sinus rhythm Normal ECG When compared with ECG of 18-Nov-2024 10:17, MANUAL COMPARISON REQUIRED DATA IS UNCONFIRMED Confirmed by DAMIÁN MATHEWS, MATTY ([id number]), industrial editor URBANO FRIED ([id number]) on 11/21/2024 8:30:44 AM Referred By: Ta Dugan Confirmed By: MATTY STEEL MD
[2024-11-18] MEDS: 0.9% Normal Saline (1000mL) 1,000 ML 15 ML IV (10:22)
[2024-11-18 10:29] LABS: Hematocrit 42.2 % (37-47); Hemoglobin 14.2 g/dL (12.0-15.0); Mean Corp Hgb Conc 33.6 g/dL (32-36); Mean Corpuscular Hgb 29.4 pg (27.0-32.0); Mean Corpuscular Volume 87.4 fL (81-99); Mean Platelet Vol. 10.4 fl (6.2-12.0); Platelet Count 210 K/mm3 (150-450); RBC Distribution Width CV 13.1 % (11.6-14.6); RBC Distribution Width SD 41.9 fl (35.1-43.9); Red Blood Count 4.83 M/mm3 (4.2-5.4); White Blood Count 5.5 K/mm3 (4.4-11.0)
--- NOTE | 2024-11-18 10:45 | HP.PCM_ITS ---
History and Physical Date of Admission: 11/18/24 Intake Vital Signs 02/22/2409:06 10/06/2408:27 Height 5 ft 6 in 5 ft 6 in Weight: 224 lb 8 oz BMI 36.2 BP 138/84 H Blood Pressure Location Rt brachial Position Sitting Respiration 18 Pulse 85 Pulse Source Monitor Pulse Oximetry (%) 93 Oxygen Delivery Method room air Intake Visit Reasons: DISCUSS SURGERY Chief Complaint: Discuss hernia surgery Is patient in pain?: No Allergies No Known Allergies Allergy (Verified 10/06/24 08:28) Medications ?Medication ?Instructions ?Recorded ?Confirmed ?Type clopidogrel 75 mg tablet 75 mg PO DAILY 01/10/14 10/06/24 History lisinopril 5 mg tablet 5 mg PO BID 07/04/15 10/06/24 History citalopram 10 mg tablet 10 mg PO DAILY 01/15/17 10/06/24 History pantoprazole 40 mg tablet,delayed 40 mg PO DAILY GERD 01/15/17 10/06/24 History release cetirizine 10 mg tablet 10 mg PO DAILY 01/20/18 10/06/24 History atorvastatin 80 mg tablet 40 mg PO DAILY 10/20/23 10/06/24 History Have you fallen in the past year?: No PFSH Medical History History of pain when walking High cholesterol Wears glasses Cancer Alcohol use Arthritis Anemia Migraine headache TIA (transient ischemic attack) Hx of vertigo History of hiatal hernia Gastric reflux Non-smoker CPAP (continuous positive airway pressure) dependence Shortness of breath on exertion History of echocardiogram History of stress test nontoxic unilateral goiter Anxiety Hypertension Bilateral carotid artery stenosis Umbilical hernia Seborrheic keratosis Osteoarthritis Osteopenia Chronic anticoagulation History of CVA (cerebrovascular accident) Surgical History Status post surgical removal of malignant neoplasm of skin S/P colonoscopy Status post right knee replacement History of knee replacement procedure of left knee Hx of hernia repair History of laparoscopic cholecystectomy History of hysterectomy History of tubal ligation Family History Mother HypertensionFather COPD (chronic obstructive pulmonary disease) Social History Smoking Status: Never smoker alcohol intake: never substance use type: does not use caffeine: Yes what type of physical activity do you participate in: walking and other details: pedals while sitting down frequency: 3-4 times per week seatbelt use: always do you feel safe at home: Yes additional social history: - Isaias HPI HPI HPI: Patient is a 64-year-old female here for ventral hernia. She is here to discuss her CAT scan that we ordered. ROS General General: No weight change or fatigue HEENT HEENT: No difficulty swallowing Endo Endocrine: No thyroid disease Musc Musculoskeletal: No back problems or arthritis Cardio Cardiovascular: No pacemaker, heart disease, atrial fibrillation, high blood pressure, heart attack, heart stent, palpitations or chest pain Psych Psychiatric: Yes anxiety Resp Respiratory: Yes sleep apnea Gastro Gastrointestinal: Yes acid reflux Quang Hematologic: Yes blood thinners Neuro Neurologic: Yes other Exam Const General: cooperative Orientation: alert and oriented x3 HENMT Head: normal to inspection Neck Neck: normal visual inspection and full ROM Chest Chest palpation & inspection: normal inspection of the chest Resp Effort & Inspection: normal respiratory effort Auscultation: clear to auscultation bilaterally Cardio Rate: regular rate Rhythm: regular rhythm GI Inspection: non-distended Palpation: soft, hernia ventral and nontender Skin General: no rashes or lesions noted Neuro General: patient alert and patient oriented x3 Extrem General: full ROM Psych Appearance: grossly normal Mental Status: mental status grossly normal Assessment and Plan Assessment and Plan (1) Incisional hernia, without obstruction or gangrene: Status: Acute Plan: Patient has recurrent incisional hernia. The patient had a hernia at this site prior and I assisted Dr. Gonzales with an oophorectomy and used a hernia as a port site and closed it with suture but now it has recurred. A CT to confirm this. The defect is 2.4 cm. I discussed repair with her today in detail. I discussed an open laparoscopic hybrid approach with mesh. I discussed the risks of the procedure such as bleeding, infection, injury underlying organs. Patient understands the risks and is thinking about surgery. If she decides on proceed ing she will call us and schedule surgery. Ta Dugan MD Pager: [facility] [address] [place] [address], [address] [place] [address] Office: I have examined the patient and the H&P has been reviewed. There are no clinical changes since date of exam.
[2024-11-18 10:48] LABS: Anion Gap 7 (5-15); BUN 7 mg/dL (7-18); BUN/Creat Ratio 10.9 RATIO (10-20); Calcium,Total 9.1 mg/dL (8.5-10.1); Chloride 110 mmol/L (98-107); Creatinine, Serum 0.64 mg/dL (0.55-1.02); EST Glomerular Filtration Rate 98 mL/min (>60); Est Glom Filt Rate - Afr Amer 119 mL/min (>60); Estimated Creatinine Clearance 83.56 ml/min; Glucose 99 mg/dL (74-106); Potassium 3.7 mmol/L (3.5-5.1); Sodium Level 140 mmol/L (136-145)
--- NOTE | 2024-11-18 11:02 | PRE.ANES_ITS ---
ASA Classification* ASA Classification ASA Classification: 2 Assessment & Plan Anesthesia* Anesthesia Assessment Anesthesia Assessment: Discussed sedation and/or anesthesia options, risks, benefits, and alternatives with patient/parents/legal guardian/POA. Questions invited. The patient/parents/legal guardian/POA seems to understand and agrees to proceed with anesthesia plan. Reviewed the physical assessment, medical history, allergy history and patient home medications list prior to surgery/procedure/anesthetic and documented any changes. Performed airway and anesthesia risk assessments. Anesthesia Type Anesthesia Type: General History Source History Obtained from:: Patient and Chart Anesthesia Focused Assessment* Temperature: 97.4 F Pulse Rate: 73 Blood Pressure: 135/78 Respiratory Rate: 16 Pulse Ox: 98 Oxygen Delivery Method: Room Air Airway Assessment Mouth opens: >3 cm Mallampati Score: IV Teeth Condition: Caps/Crowns (Patient has multiple caps and crowns. All tight.) and Missing (Patient has a couple missing teeth molars.) Neck Range of motion (ROM): Full ROM Focused Labs Anesthesia Preop lab: CBC WBC 5.5 K/mm3 (4.4-11.0) 11/18/24 10:15 RBC 4.83 M/mm3 (4.2-5.4) 11/18/24 10:15 Hgb 14.2 g/dL (12.0-15.0) 11/18/24 10:15 Hct 42.2 % (37-47) 11/18/24 10:15 Plt Count 210 K/mm3 (150-450) 11/18/24 10:15 CHEMISTRY Potassium 3.7 mmol/L (3.5-5.1) 11/18/24 10:15 Sodium 140 mmol/L (136-145) 11/18/24 10:15 Magnesium 2.1 mg/dL (1.6-2.6) 04/13/23 07:46 BUN 7 mg/dL (7-18) 11/18/24 10:15 Creatinine 0.64 mg/dL (0.55-1.02) 11/18/24 10:15 Glucose 99 mg/dL (74-106) 11/18/24 10:15 POC Glucose 137 mg/dL (74-106) H 04/20/23 06:04 TSH 2.44 uIU/mL (0.358-3.74) 03/21/17 07:54 COAG PT 13.7 SECONDS (11.7-14.9) 04/13/23 07:46 Pre-Assessment Diagnosis/Proposed Procedure Planned Operative Procedure(s): OPEN LAP HYBRID INCISIONAL HERNIA REPAIR WITH MESH Anesthesia History 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 When Was Last Pacemaker Check QUESTION #4 FULL TEXT: You/Your Family Experience fever (hyperthermia) with Anesthesia Last Oral Intake Last Oral intake: Last Oral Intake NPO since 00:00 11/18/24 10:24 Meds taken in AM with sips of Yes 11/18/24 10:24 water? Meds patient instructed to take am of surgery Any additional information?: Yes Meds taken in AM with sips of water?: Yes PONV PONV - blasting clay miner: PONV - blasting clay miner Female Yes 11/09/24 12:06 HX of Motion Sickness No 11/09/24 12:06 HX of N/V After Surgery No 11/09/24 12:06 Non-Smoker Yes 11/09/24 12:06 Duration of Surgery greater Yes 11/09/24 12:06 than 60 minutes Number of Risk Factors 3 11/09/24 12:06 PONV Score Moderate Risk 11/09/24 12:06 Height & Weight Height & Weight: Anesthesia: Height & Weight Height 5 ft 6 in 11/18/24 10:24 Weight: 99.79 kg 11/18/24 10:24 Body Mass Index (BMI) 35.5 11/18/24 10:24 Respiratory Assessment Respiratory Assessment - blasting clay miner: Respiratory Tract Infection Hx - blasting clay miner Hx Respiratory Tract Infection No 11/09/24 12:06 STOP Sleep Apnea STOP Sleep Apnea - blasting clay miner: STOP Sleep Apnea - blasting clay miner Hx Hypertension Yes: CONTROLLED WITH MEDS 12/11/24 12:06 Hx Sleep Apnea Yes 11/09/24 12:06 CPAP Yes 11/09/24 12:06 BIPAP No 11/09/24 12:06 Do you snore loudly (louder than talking or can be heard Do you often feel tired/ fatigued/ sleepy during daytime? Has anyone observed you stop breathing during sleep? STOP Results Positive 11/09/24 12:06 QUESTION #5 FULL TEXT : Do you snore loudly (louder than talking or can be heard through closed doors)? 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 Specify any problems Hx of Preganancy in last 3 No 11/09/24 12:06 Months Nurse Filling Out Transfusion DSCHRIBER 11/09/24 12:06 & Questions: Date: 11/09/24 11/09/24 12:06 Time: 12:07 11/09/24 12:06 Patient unable to answer at this time (ie. confused, unrespo /Reproduction History /Reproductive History - blasting clay miner: /Reproductive Hx- blasting clay miner Hx Now No 11/09/24 12:06 Gestational Age (in weeks): EDC: Hx Hx Para Hx Section SAB No 11/09/24 12:06 Active Medications Active Medications: Current Medications Generic Name Dose Route Start Last Admin Trade Name Freq PRN Reason Stop Dose Admin Cefazolin Sodium 2 gm/ N/A 20 mls @ 400 mls/hr 11/18/24 11:30 IV 11/18/24 11:32 PREOP ONE Sodium Chloride 1,000 mls @ 15 mls/hr 11/18/24 10:25 12/20/24 10:22 IV 11/23/24 23:44 15 mls/hr .Q48H SUHAIL Administration Protocol [facility] Medical History CPAP (continuous positive airway pressure) dependence History of pain when walking High cholesterol Wears glasses Cancer Alcohol use Arthritis Anemia Migraine headache TIA (transient ischemic attack) Hx of vertigo History of hiatal hernia Gastric reflux Non-smoker Shortness of breath on exertion History of echocardiogram History of stress test nontoxic unilateral goiter Anxiety Hypertension Bilateral carotid artery stenosis Seborrheic keratosis Osteoarthritis Osteopenia Chronic anticoagulation History of CVA (cerebrovascular accident) Home Medications ?Medication ?Instructions ?Recorded ?Last Taken ?Type clopidogrel 75 mg tablet 75 mg PO DAILY 01/10/14 11/12/24 History lisinopril 5 mg tablet 5 mg PO BID 07/04/15 11/17/24 History citalopram 10 mg tablet 10 mg PO DAILY 01/15/17 11/18/24 History pantoprazole 40 mg tablet,delayed 40 mg PO DAILY GERD 01/15/17 11/18/24 History release cetirizine 10 mg tablet 10 mg PO DAILY 01/20/18 11/17/24 History atorvastatin 40 mg tablet 40 mg PO QHS 11/09/24 11/17/24 History cholecalciferol (vitamin D3) 125 125 mcg PO DAILY 11/09/24 11/17/24 History mcg (5,000 unit) tablet (Vitamin D3) [id number] C 250 1 tab PO DAILY 11/09/24 11/17/24 History mg-herbal no.124 8.875 mg chewable tablet (Airborne (ascorbic acid)) Allergy/AdvReac Type Severity Reaction Status Date / Time No Known Allergies Allergy Verified 11/18/24 10:16 Family History Mother Hypertension Father COPD (chronic obstructive pulmonary disease) Surgical History Hx of salpingo-oophorectomy, bilateral Status post surgical removal of malignant neoplasm of skin S/P colonoscopy Status post right knee replacement History of knee replacement procedure of left knee Hx of hernia repair History of laparoscopic cholecystectomy History of hysterectomy History of tubal ligation Social History Smoking Status: Never smoker alcohol intake: never substance use type: does not use caffeine: Yes what type of physical activity do you participate in: walking and other details: pedals while sitting down frequency: 3-4 times per week seatbelt use: always do you feel safe at home: Yes additional social history: - Isaias Review of Systems (Anesthesia) ROS Narrative System reviewed and no additional complaints, except as documented.
[2024-11-18] MEDS: Cefazolin 2 GM in Syringe IV (11:48)
[2024-11-18] MEDS: Bupiv/Epi 0.25% 30 ML Vial (12:26)
--- NOTE | 2024-11-18 12:39 | OP.PCM_ITS ---
Operative Report (Standard) Operative Information Date of Procedure: 11/18/24 Pre-Operative Diagnosis: Incisional ventral hernia, recurrent, under 3 cm Post-Operative Diagnosis: Same Surgery/Procedure Performed: Laparoscopic assisted hybrid ventral hernia repair with mesh digital media director: Yes Ocean Freight Forwarder: Rajwinder Diane Tasks completed by certified surgical first assistant: Opening, Closing and Retracting Type of Anesthesia: General/Regional RN Documented Start/Stop Times: Operation Date: 11/18/24 11:30 Case Time Into Pre-Op 11/18/24 10:17 Out of Pre-Op 11/18/24 11:30 Anesthesia Start 11/18/24 11:34 Into Room 11/18/24 11:34 Procedure Start 11/18/24 11:54 Procedure End 11/18/24 12:39 Procedure Start Time: 11:54 Procedure Stop Time: 12:39 Select all DRAINS/GRAFTS/IMPLANTS that apply: Implanted device Implanted device details: [address] mesh Estimated Blood Loss: 10 Specimen collected: Yes Description of specimen(s) removed: Hernia sac and contents Description of surgery: Patient was brought back to the operating room and general anesthesia was induced. The abdomen was prepped and draped in usual sterile fashion. Incision was made in the left upper quadrant and using Visiport technique the abdomen was entered. It was insufflated 15 mmHg. Camera was placed into the port and there were no signs of injury. The abdomen was assessed and the patient had adhesions to small bowel from her old mesh that was at the umbilicus. These were taken down sharply with scissors after an additional 5 mm port was placed. Once the bowel was taken down the prior incision was incised with a scalpel and the hernia sac was resected as well as the preperitoneal contents. 3 [id number] 0 Vicryl sutures were used across the fascia and they were hemostat in place. Next the 12 port was placed through the hernia and the balloon was insufflated. The [address] mesh with echo positioning device was selected and soaked and placed through the port. The port was then removed and the sutures were tied and then the abdomen is insufflated 15 mmHg. The echo positioning device was inflated. The mesh was tacked in 4 quadrants to the anterior fascia using secure strap tacks. The balloon was then removed in its entirety. The mesh was then tacked circumferentially. There was good coverage of the hernia site. The abdomen was allowed to desufflate and the ports were removed. The skin incisions were injected with local anesthetic and closed with interrupted 4-0 Monocryl sutures. Steri-Strips and bandages were applied. Patient was awoken and taken to PACU in stable condition. Surgical Findings: Recurrent incisional hernia Complications Complications: No Admit VTE Documentation VTE Mechan Device Prophylaxis: SCD's
--- NOTE | 2024-11-18 12:45 | DCINST_ITS ---
Discharge Instructions Procedure Hernia Diet Discharge Diet: Light diet - advance as tolerated Activity Discharge Activity: May Not Drive (for 2-3 days or while taking narcotic pain meds.) and May Shower (with the bandage in place 1-2 days after surgery.) Lifting Restrictions: 20 pounds for 4 weeks. Additional Activity Instructions:: Climbing stairs is fine, walking is encouraged. Sitting in bed may be uncomfortable. Sitting up using your lateral muscles (sitting up sideways) is usually more comfortable. Do not drive, work heavy equipment of sign legal documents for 24 hours. Pain medications may cause nausea, you should typically eat light foods as you take your pain medications. Pain medications may also cause constipation. If you have difficulty with this, discuss with your doctor. Alternate ibuprofen and Tylenol for pain control, oxycodone for breakthrough pain. Dressing / Incision Call your doctor if your incision/area has: Continuous Slow Oozing, Sudden Increased Bleeding, Increased Pain/ Swelling, Increased Redness and Foul Smelling Discharge Call your doctor if you observe: Fever of 101 or Higher Suture Line Care: Avoid Pulling/Pushing and Avoid Pinching/Bending Remove Dressing in: 2 days (Remove clear bandages in 2 days, remove Steri-Strips in 7 to 10 days.) Cleanse incision/area with: Soap & Water Follow Up Care Please Follow Up With: Ta Dugan MD When: Please call to schedule 2 week follow up appointment. [phone] Test Results: Test results from this visit will be discussed in further detail at your follow- up appointment, if applicable. Discharge Plan Admission Attending Provider: Ta Dugan Primary Care Provider: Brigette Saavedra Instructions Print Language: Slovenian Discharge Orders/Prescriptions Prescriptions: New oxycodone 5 mg Tablet 5 - 10 mg PO Q4H PRN PRN (Reason: Pain Score 4-10) 5 Days Qty: 20 0RF No Action clopidogrel 75 MG tablet 75 mg PO DAILY lisinopril 5 MG tablet 5 mg PO BID citalopram 10 MG tablet 10 mg PO DAILY pantoprazole 40 MG tablet 40 mg PO DAILY cetirizine 10 MG tablet 10 mg PO DAILY atorvastatin 40 mg tablet 40 mg PO QHS cholecalciferol (vitamin D3) [Vitamin D3] 125 mcg (5,000 unit) tablet 125 mcg PO DAILY Airborne (ascorbic acid) 250-8.875 mg tablet,chewable 1 tab PO DAILY Referrals / Follow Up: Brigette Saavedra DO [Primary Care Provider] - Disposition Disposition (needs filled in before D/C Order can be placed): Home, Self Care
--- NOTE | 2024-11-18 12:54 | PCM.POST.ANE ---
Anesthesia: Postop Eval I Current Vital Signs Temperature: 97.2 F Pulse Rate: 80 Blood Pressure: 104/82 Respiratory Rate: 16 Pulse Ox: 92 Oxygen Delivery Method: Room Air Assessment Airway patent: Yes Spontaneous unlabored respirations: Yes Mental status: Awake and Calm nausea: No Vomiting: No Anesthesia Complication: No Fluid Hydration Crystalloid volume administer (ml): 700 Total IV fluid infused: 700 Progress Note Anesthesia document: Postop Eval 1 completed: Yes
--- NOTE | 2024-11-18 13:19 | POSTOPAN2_ITS ---
Anesthesia Postop Eval I Sum Postop Eval Completion status Anesthesia document: Postop Eval 1 completed: Yes Anesthesia Postop Eval I Summary Anesthesia Postop Eval I Summary: Anesthesia Postop Eval I: Assessment Summary Airway patent Yes 11/18/24 12:55 DIE STORAGE [email or web address] Spontaneous unlabored Yes 11/18/24 12:55 DIE STORAGE [email or web address].MDOT respirations Mental status Awake,Calm 11/18/24 12:55 DIE STORAGE [email or web address].MDOT nausea No 11/18/24 12:55 DIE STORAGE WORKER.MDOT Vomiting No 11/18/24 12:55 DIE STORAGE [email or web address].MDOT Anesthesia Postop Eval I: Fluid Summary Crystalloid volume administer 700 11/18/24 12:55 DIE STORAGE [email or web address].MDOT (ml) Colloids volume administered ( ml) Blood Product volume administered (ml) Total IV fluid infused 700 11/18/24 12:55 DIE STORAGE [email or web address].MDOT Anesthesia Postop Eval I: Summary Notes Anesthesia Complication No 11/18/24 12:55 DIE STORAGE WORKER.MDOT Anesthesia Complication Comment: Post-operative progress note Anesthesia: Postop Eval II Evaluation Mental status: Awake Pain Level: 0 nausea: No Vomiting: No
--- NOTE | 2024-11-18 13:19 | PCM.POSTANE2 ---
Anesthesia Postop Eval I Sum Postop Eval Completion status Anesthesia document: Postop Eval 1 completed: Yes Anesthesia Postop Eval I Summary Anesthesia Postop Eval I Summary: Anesthesia Postop Eval I: Assessment Summary Airway patent Yes 11/18/24 12:55 CHISEL [email or web address] Spontaneous unlabored Yes 11/18/24 12:55 CHISEL GRINDER.MDOT respirations Mental status Awake,Calm 11/18/24 12:55 CHISEL [email or web address].MDOT nausea No 11/18/24 12:55 CHISEL GRINDER.MDOT Vomiting No 11/18/24 12:55 CHISEL GRINDER.MDOT Anesthesia Postop Eval I: Fluid Summary Crystalloid volume administer 700 11/18/24 12:55 CHISEL GRINDER.MDOT (ml) Colloids volume administered ( ml) Blood Product volume administered (ml) Total IV fluid infused 700 11/18/24 12:55 CHISEL GRINDER.MDOT Anesthesia Postop Eval I: Summary Notes Anesthesia Complication No 11/18/24 12:55 CHISEL GRINDER.MDOT Anesthesia Complication Comment: Post-operative progress note Anesthesia: Postop Eval II Evaluation Mental status: Awake Pain Level: 0 nausea: No Vomiting: No
[2024-11-18] MEDS: oxyCODONE 5 MG Tablet PO (14:23)
== END 2024-11-18 15:09 | disposition home or self-care (01) ==
LOC: SDC 09:52 → AC 09:53
PROVIDERS: Anesthesiology; PCP Internal Medicine; Referring Provider Surgery; Visit Provider Surgery
PROC: 0WQF4ZZ Repair Abdominal Wall, Percutaneous Endoscopic Approach (ICD-10-PCS; CPT 49613; principal; 2024-11-18 11:10)
DX: K43.2 Incisional hernia without obstruction or gangrene (principal); E78.00 Pure hypercholesterolemia, unspecified; K21.9 Gastro-esophageal reflux disease without esophagitis; I10 Essential (primary) hypertension; Z79.01 Long term (current) use of anticoagulants; Z79.899 Other long term (current) drug therapy
CPT/HCPCS: 49613; 00830; 80048; 85027; 88302; 93005; J2405

== ENCOUNTER → 2024-12-09 | Outpatient (CLI) | payer BC, SELFPAY ==
--- NOTE | 2024-12-09 07:56 | US_ITS ---
EXAM: US SOFT TISSUES HEAD AND NECK, THYROID CLINICAL INDICATION: Thyroid Nodule TECHNIQUE: Greyscale and color doppler imaging was performed of the thyroid gland. This report was created using [employer] report generation technology. COMPARISON: 01/21/2019, 04/10/2017, 02/14/2016. FINDINGS: LEFT THYROID LOBE: The left thyroid lobe measures 4.6 x 1.7 x 1.2 cm. Within the left thyroid lobe, there is a 0.9 cm nodule. This nodule is mixed cystic and solid, hyperechoic or isoechoic, vxzud-pmon-pamz, smoothly marginated and contains no echogenic foci. TI-RADS points: 2. TI-RADS category: TR2. This nodule is not suspicious and no FNA or follow-up is necessary. RIGHT THYROID LOBE: The right thyroid lobe measures 4.9 x 2.5 x 2.1 cm. Within the right thyroid lobe, there is a 2.6 cm nodule which has increased in size since prior examination. This nodule is solid or almost completely solid, hyperechoic or isoechoic, [id number], ill-defined and contains no echogenic foci. TI-RADS points: 3. TI-RADS category: TR3. This nodule is mildly suspicious. Recommend FNA evaluation. ISTHMUS: The thyroid isthmus measures 0.18 cm. No thyroid nodules are present. US/Thyroid IMPRESSION: The right-sided thyroid nodule has increased in size. If definitive FNA was not performed, FNA is recommended at this time. Electronically Signed: Yunior Penny DO at 23:53 EST ,
== END | disposition home or self-care (01) ==
PROVIDERS: PCP Internal Medicine; Referring Provider Internal Medicine; Visit Provider Internal Medicine
DX: E03.9 Hypothyroidism, unspecified (principal)
CPT/HCPCS: 76536

== ENCOUNTER → 2025-02-24 | Outpatient (CLI) | payer BC, SELFPAY ==
--- NOTE | 2025-02-24 09:45 | BI_ITS ---
EXAM: SCRN MAMM (CAD)W/CHAPIN BILAT 02/24/2025 CLINICAL HISTORY: F, Age 64 y/o , SCREENING MAMMOGRAM FOR BREAST CANCER TECHNIQUE: Bilateral screening digital breast tomosynthesis with 2D and 3D images. Computer aided detection. COMPARISON: Prior exam(s) dated 01/27/2024, 01/23/2023. FINDINGS: TISSUE DENSITY: The breast tissue is composed of scattered area of fibroglandular density. Bilateral Breast Mammographic Findings: No significant masses, calcifications or other abnormalities are identified. BI/SCRN MAMM (CAD)W/CHAPIN BILAT IMPRESSION: Right Breast: BIRADS 1 NEGATIVE. Left Breast: BIRADS 1 NEGATIVE. OVERALL FINAL ASSESSMENT: BIRADS 1 NEGATIVE. RECOMMENDATION: Routine annual follow-up in 1 Year A letter with findings and recommendations will be mailed to the patient. Reading Location: [id number]
== END | disposition home or self-care (01) ==
LOC: OPBI 09:40
PROVIDERS: PCP Internal Medicine; Referring Provider Nurse Practitioner Women's Health; Visit Provider Nurse Practitioner Women's Health
DX: Z12.31 Encounter for screening mammogram for malignant neoplasm of breast (principal)
CPT/HCPCS: 77063; 77067

== ENCOUNTER → 2025-08-23 | Outpatient (CLI) | payer BC, SELFPAY ==
--- NOTE | 2025-08-23 07:55 | CDU_ITS ---
Reason For Study Reason For Study: History of carotid stenosis Rt. Velocities/BP Lt. Velocities/BP Prox CCA 60.7/17.3 cm/sec. Prox CCA 85.1/24.9 cm/sec. Mid CCA 79.6/23.9 cm/sec. Mid CCA 79.0/24.9 cm/sec. Dist CCA 74.0/20.1 cm/sec. Dist CCA 66.7/23.7 cm/sec. Prox ICA 66.4/18.2 cm/sec. Prox ICA 46.3/14.2 cm/sec. Mid ICA 74.0/27.8 cm/sec. Mid ICA 76.5/29.8 cm/sec. Dist ICA 82.8/32.2 cm/sec. Dist ICA 100.4/34.4 cm/sec. Rt. ICA/CCA = 1.0. Lt. ICA/CCA = 1.3. Prox ECA 81.5/11.6 cm/sec. Prox ECA 69.1/10.2 cm/sec. Rt. Vert. 25.8/7.3 cm/sec. Lt. Vert. 35.5/13.5 cm/sec. Right Extracranial There is intimal thickening but no significant atherosclerotic plaque noted in the right common carotid artery. There is intimal thickening but no significant atherosclerotic plaque noted in the right internal carotid artery. There is intimal thickening but no significant atherosclerotic plaque noted in the right external carotid artery. Antegrade flow is noted in the right vertebral artery. Left Extracranial There is intimal thickening but no significant atherosclerotic plaque noted in the left common carotid artery. There is intimal thickening but no significant atherosclerotic plaque noted in the left internal carotid artery. There is intimal thickening but no significant atherosclerotic plaque noted in the left external carotid artery. Antegrade flow is noted in the left vertebral artery. Procedure Carotid Duplex 68165. This is a Carotid Duplex examination using B-mode, color flow and specral Doppler. Exam performed in department. VL/Carotid Duplex Ultrasound Interpretation Summary Normal right extracranial internal carotid. Normal left extracranial internal carotid. Patent and antegrade vertebrals bilaterally. Ordering Physician: Guera White Referring Physician: Brigette Saavedra DO Performed By: Angelika Mccauley RVT
== END | disposition home or self-care (01) ==
LOC: CVS 07:55
PROVIDERS: PCP Internal Medicine
DX: I65.23 Occlusion and stenosis of bilateral carotid arteries (principal); Z86.73 Personal history of transient ischemic attack (TIA), and cerebral infarction without residual deficits
CPT/HCPCS: 93880